=== PATIENT | female | born 1985 | race Caucasian/White ===

== ENCOUNTER → 2019-02-12 11:49 | Outpatient (CLI) | payer MEDICAID, SELFPAY ==
[2017-04-24 12:45] VITALS: BMI 43.4
--- NOTE | 2019-02-12 11:55 | RAD_ITS ---
STUDY: X-RAY - LEFT WRIST REASON FOR EXAM: Female, 33 years old. Fell 3 months ago. Pain TECHNIQUE: 3 view(s) of the wrist were obtained. COMPARISON: None. FINDINGS: There is a healed oblique fracture involving the proximal shaft of the fourth metacarpal bone. There are no acute fractures. The rest of the bone of the wrist are normal. There is no soft tissue swelling. Electronically Signed: Rob Ray MD at 3:51 EDT Tel , Service support , RAD/Wrist min 3 Views
== END ==
PROVIDERS: Family Provider Family Medicine; PCP Family Medicine; Referring Provider Family Medicine; Visit Provider Family Medicine
DX: M25.532 Pain in left wrist (principal)
CPT/HCPCS: 73110

== ENCOUNTER → 2019-03-04 | Outpatient (CLI) | payer MEDICAID, SELFPAY ==
--- NOTE | 2019-03-04 09:05 | RAD_ITS ---
STUDY: X-RAY - CERVICAL SPINE REASON FOR EXAM: Female, 33 years old. Neck pain TECHNIQUE: 4 view(s) of the cervical spine were obtained including flexion and extension COMPARISON: None FINDINGS: Normal anterior atlantoaxial articulation. Normal odontoid process. Normal cervical lordosis. Normal vertebral bodies and endplates. There is narrowing of C5-6 disc space with minor endplate spurring. No evidence for gross instability upon flexion and extension The soft tissue structures are unremarkable. RAD/Cerv Spine 4 or 5 Views IMPRESSION: Mild spondylosis.. Electronically Signed: Jatin Alvarez MD at 20:16 EDT , Service support ,
--- NOTE | 2019-03-04 09:05 | RAD_ITS ---
STUDY: X-RAY - LEFT SHOULDER REASON FOR EXAM: Pain. TECHNIQUE: 4 view(s) of the shoulder. COMPARISON: None. FINDINGS: Normal glenohumeral articulation. Normal acromioclavicular joint. Normal acromion. Normal humeral head and visualized proximal humerus. The soft tissue structures are unremarkable. Normal visualized pulmonary apex. RAD/Shoulder min 2 Views IMPRESSION: Normal x-ray examination of the left shoulder. Electronically Signed: Mark Lima MD at 9:39 EDT Tel , Service support ,
== END | disposition home or self-care (01) ==
LOC: HPRAD 09:04
PROVIDERS: Family Provider Family Medicine; PCP Family Medicine; Referring Provider Orthopaedic Surgery; Visit Provider Orthopaedic Surgery
DX: R20.0 Anesthesia of skin (principal); R20.2 Paresthesia of skin; R52 Pain, unspecified
CPT/HCPCS: 72050; 73030

== ENCOUNTER → 2019-05-06 | Outpatient (CLI) | payer MEDICAID, SELFPAY ==
[2019-04-29 15:26] VITALS: BMI 33.7
[2019-05-06 14:35] LABS: Absolute Lymphocyte Count 2.02 X10^3/ul (0.83-4.51); Absolute Neutrophil Count 4.7 X10^3/uL (2.0-7.7); Basophil# 0.01 X10^3/uL; Basophil% 0.1 % (0-1); Eosinophil# 0.12 X10^3/uL; Eosinophils% 1.6 % (0-5); Hematocrit 40.7 % (37-47); Hemoglobin 12.9 g/dl (12.0-15.0); Lymphocyte # 2.02 X10^3/ul (4.0); Lymphocyte % 26.9 % (19-41); Mean Corp Hgb Conc 31.7 g/gl (32-36); Mean Corpuscular Hgb 26.7 pg (27.0-32.0); Mean Corpuscular Volume 84.3 fL (81-99); Mean Platelet Vol. 11.4 fl (6.2-12.0); Monocyte# 0.69 X10^3/uL; Monocyte% 9.2 % (0-10); Neutrophil # 4.66 X10^3/uL (2.7-7.7); Neutrophil % 61.9 % (47-70); Platelet Count 297 K/mm3 (150-450); RBC Distribution Width CV 14.1 % (11.6-14.6); RBC Distribution Width SD 42.7 fl (35.1-43.9); Red Blood Count 4.83 M/mm3 (4.2-5.4); White Blood Count 7.5 K/mm3 (4.4-11.0)
[2019-05-06 14:40] LABS: POSITIVE COUNT NO; POSITIVE DIFFERENTIAL NO; POSITIVE MORPHOLOGY NO
[2019-05-06 15:16] LABS: Prolactin 11.3 ng/mL; T4 Free Direct 0.94 ng/dL (0.76-1.46); Thyroid Stim Hormone (TSH) 1.35 uIU/mL (0.358-3.74)
== END | disposition home or self-care (01) ==
LOC: BFHLAB 13:16
PROVIDERS: Family Provider Family Medicine; PCP Family Medicine; Visit Provider Family Medicine
DX: N92.1 Excessive and frequent menstruation with irregular cycle (principal)
CPT/HCPCS: 36415; 84146; 84439; 84443; 85025

== ENCOUNTER → 2020-05-31 13:24 | Outpatient (CLI) | payer MEDICAID, SELFPAY ==
[2020-04-02 07:38] VITALS: BMI 33.7
--- NOTE | 2020-05-31 13:26 | CT_ITS ---
STUDY: CT MAXILLOFACIAL SINUSES REASON FOR EXAM: Female, 35 years old. SINUSITIS, RT SIDED CONGESTION SINCE OCTOBER RADIATION DOSAGE (If Supplied By Facility): CTDIvol = ( 33.06 ) mGy, DLP = ( 784.26 ) mGycm TECHNIQUE: The patient was scanned in a multi detector CT scanner. High resolution axial imaging was performed without the administration of intravenous contrast material. Sagittal and coronal images were reconstructed. Individualized dose optimization techniques were used for this CT. COMPARISON: None. FINDINGS: FRONTAL SINUSES: Normal aeration, without mucosal inflammatory disease. ETHMOIDAL SINUSES: Normal aeration, without mucosal inflammatory disease. MAXILLARY SINUSES: Normal aeration, without mucosal inflammatory disease. SPHENOIDAL SINUSES: Normal aeration, without mucosal inflammatory disease. There is patency of the bilateral maxillary infundibuli with normal uncinate processes, ethmoid bullae, and hiatus semilunaris. Normal bilateral middle turbinates. There is hypertrophy of the bilateral inferior nasal turbinates. There is a left sided nasal septal deviation, but without a nasal septal spur. There is patency of the bilateral nasal airways. The visualized osseous structures are normal. The visualized bilateral orbital contents are normal. CT/Sinus/Facial Bone IMPRESSION: There is nasal septal deviation towards the left side of the midline. Hypertrophy of the inferior turbinates bilaterally more prominent on the right side. Electronically Signed: Gerard Covarrubias, at 14:27 EDT , Service support ,
== END ==
PROVIDERS: PCP Family Medicine; Referring Provider Otolaryngology; Visit Provider Otolaryngology
DX: J32.9 Chronic sinusitis, unspecified (principal)
CPT/HCPCS: 70486

== ENCOUNTER → 2020-10-15 10:23 | Outpatient (CLI) | payer MEDICAID, SELFPAY ==
[2020-04-02 07:38] VITALS: BMI 33.7
== END ==
PROVIDERS: PCP Family Medicine; Referring Provider Otolaryngology; Visit Provider Otolaryngology
DX: Z11.59 Encounter for screening for other viral diseases (principal)
CPT/HCPCS: 87635; C9803; U0003

== ENCOUNTER → 2020-10-21 | Outpatient (CLI) | payer MEDICAID, SELFPAY ==
[2020-10-21 13:48] VITALS: BMI 34.9
[2020-10-26 14:53] LABS: HPV APTIMA, High Risk Negative (Negative)
== END | disposition home or self-care (01) ==
LOC: LABSPEC 16:38
PROVIDERS: PCP Family Medicine; Visit Provider Obstetrics & Gynecology
DX: Z12.4 Encounter for screening for malignant neoplasm of cervix (principal)
CPT/HCPCS: 87624; 88175; G0145

== ENCOUNTER → 2021-02-03 | Outpatient (CLI) | payer MEDICAID, SELFPAY ==
[2021-02-03 13:43] VITALS: BMI 35.9
[2021-02-03 20:12] LABS: Chlamydia Trachomatis by PCR Negative (Negative); Neisserai gonorrhoeae by PCR Negative (Negative); Probe Check PASS; Sample Adequacy Control PASS; Specimen Processing Control PASS
== END | disposition home or self-care (01) ==
LOC: LABSPEC 17:18
PROVIDERS: PCP Family Medicine; Referring Provider Nurse Practitioner Women's Health; Visit Provider Nurse Practitioner Women's Health
DX: Z11.3 Encounter for screening for infections with a predominantly sexual mode of transmission (principal)
CPT/HCPCS: 87491; 87591

== ENCOUNTER → 2021-02-11 10:37 | Outpatient (CLI) | payer MEDICAID, SELFPAY ==
[2021-02-03 13:43] VITALS: BMI 35.9
--- NOTE | 2021-02-11 10:40 | US_ITS ---
STUDY: ULTRASOUND OF THE FEMALE PELVIS - COMPLETE REASON FOR EXAM: Female, 35 years old. Menorrhagia LMP: 01/23/2021 TECHNIQUE: Transabdominal and Transvaginal TECHNICAL QUALITY: Adequate. COMPARISON: 2016, no recent studies FINDINGS: The uterus is anteverted and is in a midline position. The uterus measures 12.8 x 7.0 x 4.8 cm. Normal uterine cervix. The endometrium measures 12 mm in thickness, and is hyperechoic. There is no demonstrated endometrial mass. There is a 1.8 cm fibroid. There are multiple nabothian cysts. I.U.D. - The patient does not have an I.U.D. The right ovary is visualized. The right ovary measures 7.9 x 7.5 x 3.9 cm. There is a 2 separate simple cysts, larger measures 4.8 x 5.6 x 3.6 cm, smaller measures 2.6 x 2.3 x 2.0 cm There is normal arterial and normal venous vascularity. The left ovary is visualized. The left ovary measures 2.6 x 2.5 x 1.8 cm cm. There is no left ovarian cyst or ovarian mass. There is no visualized left adnexal mass or complex lesion. There is normal arterial and normal venous vascularity. There is no fluid in the cul-de-sac. The bladder is sonographically normal US/Pelvic (Non ) IMPRESSION: 1.8 cm uterine fibroid 2 simple right ovarian cysts, no specific follow-up needed No suspicious adnexal mass or free fluid Electronically Signed: Everett Restrepo MD at 12:53 EDT , Service support ,
--- NOTE | 2021-02-11 10:40 | US_ITS ---
STUDY: ULTRASOUND OF THE FEMALE PELVIS - COMPLETE REASON FOR EXAM: Female, 35 years old. Menorrhagia LMP: 01/23/2021 TECHNIQUE: Transabdominal and Transvaginal TECHNICAL QUALITY: Adequate. COMPARISON: 2016, no recent studies FINDINGS: The uterus is anteverted and is in a midline position. The uterus measures 12.8 x 7.0 x 4.8 cm. Normal uterine cervix. The endometrium measures 12 mm in thickness, and is hyperechoic. There is no demonstrated endometrial mass. There is a 1.8 cm fibroid. There are multiple nabothian cysts. I.U.D. - The patient does not have an I.U.D. The right ovary is visualized. The right ovary measures 7.9 x 7.5 x 3.9 cm. There is a 2 separate simple cysts, larger measures 4.8 x 5.6 x 3.6 cm, smaller measures 2.6 x 2.3 x 2.0 cm There is normal arterial and normal venous vascularity. The left ovary is visualized. The left ovary measures 2.6 x 2.5 x 1.8 cm cm. There is no left ovarian cyst or ovarian mass. There is no visualized left adnexal mass or complex lesion. There is normal arterial and normal venous vascularity. There is no fluid in the cul-de-sac. The bladder is sonographically normal US/Transvaginal Non- IMPRESSION: 1.8 cm uterine fibroid 2 simple right ovarian cysts, no specific follow-up needed No suspicious adnexal mass or free fluid Electronically Signed: Everett Restrepo MD at 12:53 EDT , Service support ,
== END ==
PROVIDERS: PCP Family Medicine; Referring Provider Nurse Practitioner Women's Health; Visit Provider Nurse Practitioner Women's Health
DX: N92.1 Excessive and frequent menstruation with irregular cycle (principal)
CPT/HCPCS: 76830; 76856; 93976

== ENCOUNTER → 2021-02-23 14:40 | Outpatient (CLI) | payer MEDICAID, SELFPAY ==
[2021-02-03 13:43] VITALS: BMI 35.9
--- NOTE | 2021-02-23 14:43 | RAD_ITS ---
INDICATION: PAIN EXAMINATION/TECHNIQUE: X-RAY - XR Spine Lumbar Min 4 Views COMPARISON: None. FINDINGS: VERTEBRAE: Preserved vertebral body height. No fracture. No spondylolisthesis. Preservation of the normal lumbar lordosis. Mild multilevel facet arthropathy. DISCS: Mild multilevel disc space narrowing and osteophytosis. INCLUDED ABDOMEN: Included bowel gas pattern is non-obstructive. RAD/L/S Spine Min 4 Views IMPRESSION: No acute abnormalities. Mild multilevel lumbar spondylosis and facet arthropathy. Electronically Signed: Branden Matos MD at 16:09 EDT Tel , Service support ,
== END ==
PROVIDERS: PCP Family Medicine; Referring Provider Family Medicine; Visit Provider Family Medicine
DX: M54.30 Sciatica, unspecified side (principal)
CPT/HCPCS: 72110

== ENCOUNTER → 2021-03-21 11:22 | Outpatient (CLI) | payer MEDICAID, SELFPAY ==
[2021-03-21 10:47] VITALS: BMI 35.9
[2021-03-21 11:49] LABS: Absolute Lymphocyte Count 1.58 X10^3/uL (0.83-4.51); Absolute Neutrophil Count 6.9 X10^3/uL (2.0-7.7); Basophil# 0.03 X10^3/uL; Basophil% 0.3 % (0-1); Eosinophils% 1.1 % (0-5); Hematocrit 43.2 % (37-47); Hemoglobin 13.4 g/dL (12.0-15.0); Lymphocyte # 1.58 X10^3/ul (0.83-4.51); Lymphocyte % 17.1 % (19-41); Mean Corpuscular Hgb 26.3 pg (27.0-32.0); Mean Corpuscular Volume 84.9 fL (81-99); Mean Platelet Vol. 10.7 fl (6.2-12.0); Monocyte# 0.66 X10^3/uL; Monocyte% 7.1 % (0-10); NRBC Flagged by Analyzer 0 % (0-5); Neutrophil # 6.86 X10^3/uL (2.7-7.7); Neutrophil % 74.1 % (47-70); Platelet Count 303 K/mm3 (150-450); RBC Distribution Width CV 13.4 % (11.6-14.6); RBC Distribution Width SD 41.8 fl (35.1-43.9); Red Blood Count 5.09 M/mm3 (4.2-5.4); White Blood Count 9.3 K/mm3 (4.4-11.0)
[2021-03-21 12:17] LABS: Thyroid Stim Hormone (TSH) 1.64 uIU/mL (0.358-3.74)
== END ==
PROVIDERS: PCP Family Medicine; Referring Provider Obstetrics & Gynecology; Visit Provider Obstetrics & Gynecology
DX: F32.81 Premenstrual dysphoric disorder (principal)
CPT/HCPCS: 36415; 84443; 85025

== ENCOUNTER → 2022-08-31 | Outpatient (CLI) | payer MEDICAID, SELFPAY ==
--- NOTE | 2022-08-31 12:19 | US_ITS ---
STUDY: ULTRASOUND OF THE FEMALE PELVIS - COMPLETE REASON FOR EXAM: Female, 37 years old. menorrhagia -- excessive menses TECHNIQUE: Endovaginal. Transvaginal US was obtained to better visualized the ovaries. COMPARISON: 4.9.21 FINDINGS: The uterus is anteverted and is in a midline position. The uterus measures 11.5 cm. There is a Nabothian cyst of the cervix. The endometrium measures 14.4 mm in thickness, and is hyperechoic. There is no demonstrated endometrial mass. Fibroid measures 25 mm. I.U.D. - The patient does not have an I.U.D. The right ovary is visualized. The right ovary measures 6.1 cm. Cysts measure up to 67 mm. There is no visualized right adnexal mass or complex lesion. There is normal arterial and normal venous vascularity. The left ovary is visualized. The left ovary measures 3.6 cm. There is no left ovarian cyst or ovarian mass. There is no visualized left adnexal mass or complex lesion. There is normal arterial and normal venous vascularity. There is no fluid in the cul-de-sac. Urinary bladder volume is (in cc) 222. US/Transvaginal Non- IMPRESSION: There are Nabothian cysts of the cervix. Fibroids Large right ovarian cyst. Overall this is slightly larger. SRU Consensus Conference guidelines (Bird, et. al. Radiology 2019;293:359-371) recommend follow-up pelvic ultrasound in 1 year. Electronically Signed: Mikey Bah MD at 17:11 EDT ,
--- NOTE | 2022-08-31 12:19 | US_ITS ---
STUDY: ULTRASOUND OF THE FEMALE PELVIS - COMPLETE REASON FOR EXAM: Female, 37 years old. menorrhagia -- excessive menses TECHNIQUE: Endovaginal. Transvaginal US was obtained to better visualized the ovaries. COMPARISON: 4.921 FINDINGS: The uterus is anteverted and is in a midline position. The uterus measures 11.5 cm. There is a Nabothian cyst of the cervix. The endometrium measures 14.4 mm in thickness, and is hyperechoic. There is no demonstrated endometrial mass. Fibroid measures 25 mm. I.U.D. - The patient does not have an I.U.D. The right ovary is visualized. The right ovary measures 6.1 cm. Cysts measure up to 67 mm. There is no visualized right adnexal mass or complex lesion. There is normal arterial and normal venous vascularity. The left ovary is visualized. The left ovary measures 3.6 cm. There is no left ovarian cyst or ovarian mass. There is no visualized left adnexal mass or complex lesion. There is normal arterial and normal venous vascularity. There is no fluid in the cul-de-sac. Urinary bladder volume is (in cc) 222. US/Pelvic (Non ) IMPRESSION: There are Nabothian cysts of the cervix. Fibroids Large right ovarian cyst. Overall this is slightly larger. SRU Consensus Conference guidelines (Bird, et. al. Radiology 2019;293:359-371) recommend follow-up pelvic ultrasound in 1 year. Electronically Signed: Mikey Bah MD at 17:11 EDT ,
[2022-08-31 14:05] LABS: Absolute Lymphocyte Count 1.81 X10^3/uL (0.83-4.51); Absolute Neutrophil Count 7.6 X10^3/uL (2.0-7.7); Basophil# 0.02 X10^3/uL; Basophil% 0.2 % (0-1); Eosinophil# 0.11 X10^3/uL; Eosinophils% 1.1 % (0-5); Hemoglobin 13.5 g/dL (12.0-15.0); Lymphocyte # 1.81 X10^3/ul (0.83-4.51); Lymphocyte % 17.4 % (19-41); Mean Corp Hgb Conc 32.9 g/dL (32-36); Mean Corpuscular Hgb 27.8 pg (27.0-32.0); Mean Corpuscular Volume 84.5 fL (81-99); Mean Platelet Vol. 10.5 fl (6.2-12.0); Monocyte# 0.85 X10^3/uL; Monocyte% 8.1 % (0-10); NRBC Flagged by Analyzer 0 % (0-5); Neutrophil % 72.8 % (47-70); Platelet Count 327 K/mm3 (150-450); RBC Distribution Width CV 13.5 % (11.6-14.6); RBC Distribution Width SD 42.2 fl (35.1-43.9); Red Blood Count 4.85 M/mm3 (4.2-5.4); White Blood Count 10.4 K/mm3 (4.4-11.0)
[2022-08-31 14:43] LABS: Thyroid Stim Hormone (TSH) 1.88 uIU/mL (0.358-3.74)
== END | disposition home or self-care (01) ==
PROVIDERS: Referring Provider Obstetrics & Gynecology; Visit Provider Obstetrics & Gynecology
DX: N92.1 Excessive and frequent menstruation with irregular cycle (principal)
CPT/HCPCS: 36415; 76830; 76856; 84443; 85025

== ENCOUNTER → 2022-11-07 | Outpatient (CLI) | payer MEDICAID, SELFPAY ==
--- NOTE | 2022-11-07 | EMB_PTH ---
PATIENT: RADHA SNYDER LOC: [facility] U#:[id number] AGE/SX: 37/F ROOM: RE11/07/[address]: Dr. Azeb Pfeiffer MD : 1985 BED: DIS: 11/07/2022 SPEC #: [id number] RECD: 11/07/22 16:10 STATUS: LOUISE СЕРГЕЙ #: [id number] CASSANDRA: 11/07/22 00:[address]: Azeb Pfeiffer DEPT: SURGICAL PATHOLOGY RECD BY: Torsten David ENTERED: 11/08/22 08:11 SP TYPE: ENDOM BX/C JOSE DR: No Primary Care Phys Tissues: Endometrium, NOS Procedures: Surgery Specimen Level IV HEADER OPERATION: Endometrial biopsy PRE-OP DIAGNOSIS: Abnormal uterine bleeding TISSUE SUBMITTED: Endometrial biopsy MICROSCOPIC DIAGNOSIS Endometrial biopsy: Proliferative endometrium. SJ:thom 11/09/2022 MICROSCOPIC DESCRIPTION Slides are reviewed. GROSS DESCRIPTION Received is one container labeled with the patient's name and not further designated. The specimen consists of multiple fragments of hemorrhagic soft tissue mixed with mucoid tissue that in aggregate measure 2.5 x 1.5 x 0.2 cm. The specimen is totally submitted in one cassette. / SJ:thom 11/08/2022 TC:4 CPT: 98070
== END | disposition home or self-care (01) ==
LOC: LABSPEC 16:24
PROVIDERS: Referring Provider Obstetrics & Gynecology; Visit Provider Obstetrics & Gynecology
DX: N93.9 Abnormal uterine and vaginal bleeding, unspecified (principal)
CPT/HCPCS: 88305

== ENCOUNTER 2022-11-14 16:09 | Observation (INO) | payer MEDICAID, SELFPAY ==
[2022-11-10 14:19] LABS: Absolute Neutrophil Count 5.2 X10^3/uL (2.0-7.7); Basophil# 0.02 X10^3/uL; Basophil% 0.3 % (0-1); Eosinophil# 0.12 X10^3/uL; Eosinophils% 1.5 % (0-5); Hematocrit 41.3 % (37-47); Lymphocyte % 22.7 % (19-41); Mean Corp Hgb Conc 31.5 g/dL (32-36); Mean Corpuscular Hgb 26.7 pg (27.0-32.0); Mean Corpuscular Volume 84.8 fL (81-99); Mean Platelet Vol. 11.3 fl (6.2-12.0); Monocyte# 0.71 X10^3/uL; NRBC Flagged by Analyzer 0 % (0-5); Neutrophil # 5.24 X10^3/uL (2.7-7.7); Neutrophil % 66.1 % (47-70); Platelet Count 305 K/mm3 (150-450); RBC Distribution Width CV 13.5 % (11.6-14.6); RBC Distribution Width SD 41.7 fl (35.1-43.9); Red Blood Count 4.87 M/mm3 (4.2-5.4); White Blood Count 7.9 K/mm3 (4.4-11.0)
[2022-11-10 14:39] LABS: Magnesium 2.3 mg/dL (1.6-2.6)
--- NOTE | 2022-11-13 16:59 | PCM.HP.BLA ---
History and Physical Date of Admission: 11/14/22 MR#: [id number] Acct: [id number] Name:RADHA HAAS Rep #: [id number] : 1985 ? ? Provider: Dr. Azeb Pfeiffer MD Age/Sex:? 37/F ? ? Location: [facility] – [place] Status: Signed with Addenda ADDENDUM by Dr. Azeb Pfeiffer MD on 11/07/22 at 1344 Office Procedure Documentation entered by Azeb Pfeiffer MD? 11/07/22 13:44: Endometrial Biopsy Endometrial Biopsy Test: Yes Negative Consent Signed: Yes Time out checklist: patient, procedure, site marked/identified, positioning of patient, supplies available, allergies confirmed and team agrees on procedure tenaculum used: No Details: Cervix prepped with betadine and pipelle inserted into uterus without complication. Specimen obtained and sent to lab for analysis. All instruments removed from vagina without complications. Excellent hemostasis noted. 11/07/22 1344 <Electronically signed by Azeb Pfeiffer MD> Date Azeb Pfeiffer MD cc: ? ~* Signed Intake Vital Signs ? 11/07/2311:55 11/07/2311:58 Height 1.75 m 1.75 m Weight: ? 105.687 kg BMI ? 34.4 BP ? 164/82 H Intake Visit Reasons:?preop Chief Complaint: pre op [facility] Chief Executive Officer Required: No Is patient in pain?: No Allergies No Known Allergies Allergy (Verified 03/02/21 11:51) Medications NK? 11/07/22 [History Confirmed 11/07/22] Is last menstrual period known: No Post menopausal: No Patient : No : No PFSH Medical History? Abnormal Pap smear of cervix Anxiety and depression Surgical History? History of section History of lumbar surgery S/P nasal surgery Family History? Unknown Diabetes Social History? Smoking Status:? Former smoker alcohol intake:? never substance use type:? does not use caffeine:? Yes what type of physical activity do you participate in:? walking and aerobics frequency:? 1-2 times per week seatbelt use:? always do you feel safe at home:? Yes HPI preop Details: RADHA SNYDER is a 37 year old who presents for preop visit, planning hysterectomy 11 cm uterus with a fibroid, and 6 cm right ovarian cyst Female Reproductive History Cycle Length: 21-35 Bleeding Duration: 10 Associated symptoms: cramping pain Questions: metorrhagia: No, sexually active: Yes, dyspareunia: Yes (deep) and PCB: No Menopausal Symptoms: No hot flashes, No night sweats, No weight change, No mood changes, No difficulty concentrating, No sleep problems and No change in libido History ? ? ? 2 ? Elective abortions ? Hx Para ? ? ? 2 ? Spontaneous abortions ? Hx # Term Pregnancies ? Ectopic pregnancies ? Hx # Pregnancies ? Multiple births ? # of living children ? Past Pregnancies Del. Date Name GA/Weeks Outcome Route Bth Weight Gen Labor Lgth Anesthesia Del Locatn Provider FOB Unknown 2005ian ? live - full term 7lbs 4oz Male ? spinal WC Benekos ? Unknown 2016 ? live - full term 8lbs 10oz Male ? spinal WC SELENA ? ROS Const Constitutional: Denies night sweats ENT ENT: Reports system reviewed and no additional complaints, except as documented Cardio Card: Denies chest pain Resp Resp: Denies cough or dyspnea GI GI: Reports as per HPI; Denies constipation, nausea or vomiting : Denies hot flashes or nipple discharge Musc Musc: Denies arthralgias, back pain or muscle weakness Skin Skin/Breast: Denies alopecia, change in hair, dry skin, breast mass, breast pain, breast skin changes or nipple discharge Neuro Neuro: Reports system reviewed and no additional complaints, except as documented Psych Psych: Denies change in libido or difficulty concentrating Endo Endo: Denies cold intolerance, excessive sweating, heat intolerance or polydipsia Pradip/Lymph Hematologic/Lymphatic: Denies easy bleeding, Denies easy bruising and Denies lymphadenopathy Exam Const General: cooperative, healthy appearing, comfortable, no acute distress and well developed Orientation: alert [facility] Head: normal to inspection and normocephalic Ears: hearing grossly normal bilaterally and external ears normal Nose: external nose normal and nares normal Face and sinus: normal facial exam Neck Neck: normal visual inspection and no lymphadenopathy Thyroid: thyroid normal Chest Chest palpation & inspection: normal inspection of the chest Resp Effort & Inspection: normal respiratory effort Auscultation: clear to auscultation bilaterally Cardio Rate: regular rate Rhythm: regular rhythm Heart Sounds: S1 normal and S2 normal GI Inspection: normal to inspection and non-distended Palpation: soft and no hepatosplenomegaly Musc Other: gross motor intact no deficits, full bilateral strength Skin General: no rashes or lesions noted Neuro General: patient alert, patient awake, moves all extremities and no focal motor deficits Motor: muscle tone normal throughout Extrem General: normal to inspection and no pedal edema Psych Appearance: grossly normal Mental Status: mental status grossly normal Affect: normal affect Speech and Movement: speech and movement normal Results POC Urine Office , Urine Negative ? ? Last Edit by Cherry Santiago on 11/07/22 13:35 Coding Level of Care Code No Charge Diagnoses Right ovarian cyst? N83.201 Menorrhagia with irregular cycle? N92.1 Assessment and Plan Assessment and Plan (1) Right ovarian cyst: ?Status:?Acute ?Comment: ovarian cystectomy at [facility] (2) Menorrhagia with irregular cycle: ?Status:?Acute ?Comment: [facility] right ovarian cystectomy. s/p repeat US and cbc tsh ordered, needs EMB at preop visit.? US shows enlarged uterus.? suspect adenomyosis. discussed lysteda or oriahnn, failed OCP, IUD. Plan After discussing the patient's diagnosis and treatment plan options, patient wishes to proceed with surgical management.? I have discussed with the patient the risks, benefits, and alternatives of the procedure which include but are not limited to risks of anesthesia, bleeding, infection, possible damage to bowel, bladder, or surrounding vasculature which could lead to additional surgery to evaluate any complications.? Patient agrees to procedure and wishes to proceed.? ACOG/uptodate references given for additional information regarding procedure.? Plan Details Goals & Barriers: Goals Decrease pain and spasm Decrease HURD Improve ROM Barriers Previous lumbar surgery UPDATE- I have seen the patient and performed any clinically relevant updates to the history and physical exam. Azeb Pfeiffer MD
[2022-11-14] VITALS (21 sets, daily range): BP systolic 130–159; BP diastolic 69–95; PULSE 70–90; RESP 14–19; TEMP 36.1–37.7; O2SAT 95–100; BMI 34.6; BMI 34.4
[2022-11-14] MEDS: dexAMETHasone 10 MG/ML Vial 8 MG IV (06:17)
[2022-11-14] MEDS: Scopolamine 1mg/72hr Patch 1 PATCH TD (06:20)
[2022-11-14 06:35] LABS: Internal QC Validated? YES +Cl - CLEAR BKGD; Pregnancy, Urine Negative Negative
[2022-11-14] MEDS: Lactated Ringers 1,000 ML 40 ML IV ×3 (06:40→10:31)
[2022-11-14] MEDS: Enoxaparin 40 MG/0.4 ML Syringe SC (06:40)
[2022-11-14] MEDS: Gabapentin 600 MG Tablet PO (06:43)
[2022-11-14] MEDS: Acetaminophen 500 MG Tablet 1000 MG PO ×2 (06:43→18:50)
[2022-11-14] MEDS: Phenazopyridine 95 MG Tablet 190 MG PO (06:44)
[2022-11-14] MEDS: Celecoxib 200 MG Capsule 400 MG PO (06:44)
[2022-11-14 06:45] LABS: Bedside Glucose 124 mg/dL (74-106)
--- NOTE | 2022-11-14 07:30 | HYST_PTH ---
PATIENT: RADHA SNYDER LOC: [facility] U#:[id number] AGE/SX: 37/F ROOM: [facility] [place] RE11/14/[address]: Dr. Azeb Pfeiffer MD : 1985 BED: 1 DIS: 11/15/2022 SPEC #: [id number] RECD: 11/14/22 10:39 STATUS: LOUISE REEliane #: [id number] CASSANDRA: 11/14/22 07:[address]: Azeb Pfeiffer DEPT: SURGICAL PATHOLOGY RECD BY: Lucrecia Henderson ENTERED: 11/14/22 11:06 SP TYPE: HYSTERECT OTHR DR: MD Gloria Joyner PA Tissues: Uterus, NOS Procedures: Surgery Specimen Level V HEADER OPERATION: ERAS, laparoscopic assisted vaginal hysterectomy, bilateral salpingectomy PRE-OP DIAGNOSIS: Menorrhagia with irregular cycle, right ovarian cyst TISSUE SUBMITTED: Uterus, cervix, bilateral fallopian tubes, right ovarian cyst MICROSCOPIC DIAGNOSIS Uterus, cervix, bilateral fallopian tubes and right ovarian cyst, hysterectomy, bilateral salpingectomy and right ovarian cystectomy: Cervix ? chronic cystic cervicitis. Endometrium ? proliferative endometrium. Myometrium ? intramural leiomyoma (2 cm in greatest dimension). Bilateral fallopian tubes - no pathologic diagnosis. Left paratubal cyst. Cyst adjacent to right fallopian tube ? consistent with serous cystadenoma. See comment. ESHA:thom 11/15/2022 COMMENT No ovarian tissue is identified adjacent to the cyst. Please make reference to previous specimen ([id number]), endometrial biopsy with diagnosis of ?proliferative endometrium.? Case has been reviewed in consultation with Dr. Tapia who concurs with the above diagnosis. IDC:AM MICROSCOPIC DESCRIPTION Slides are reviewed. GROSS DESCRIPTION Received in fixative is one container labeled with the patient's name and designated uterus, cervix, bilateral fallopian tubes and right ovarian cyst. The specimen consists of a previously, partially opened hysterectomy specimen consisting of uterus with cervix and attached bilateral fallopian tubes and cyst adjacent to right fallopian tube. Detached pieces of tissue are also noted most likely portion of pieces of uterus measuring in aggregate 2 x 2 x 2 cm. The uterus with cervix weighs 227 gm and measures 12 x 9 x 6 cm. The serosal surface is neville, glistening. The ectocervical mucosa is neville, glistening and unremarkable. The external os is oval in contour. Sectioning of the cervix reveal multiple cysts filled with neville, mucoidy material. The endocervical canal measures up to 4 cm in length. The endocervical mucosa is neville, glistening and unremarkable. The triangular endometrial cavity measures 5.5 cm in length and up to 3 cm in width. The endometrium is neville, glistening without any mass lesion and measures up to 0.2 cm in thickness. Sectioning of the uterine wall reveal a neville, nodular mass measuring up to 2 cm in greatest dimension. Sections of this mass reveals neville whorled cut surfaces without areas of hemorrhage, necrosis or cystic degeneration. The uterine wall measures up to 3 cm in thickness. The left fallopian tube measures 7 cm in length and up to 1 cm in diameter. The fimbrial end is identified. A paratubal cyst is also noted measuring 0.5 cm in greatest dimension. Sections reveal unremarkable cut surfaces. The right fallopian tube measures 6.5 cm in length and up to 1 cm in diameter. Adjacent to the fimbrial end of the left tube, there is a large cyst measuring 7.5 x 7 x 5 cm. The distal portion of the fallopian tube including fimbrial end is adherent to this cyst. The outer surface of cyst is smooth and without any papillation. It is inked black. The cyst including the fallopian tube weighs 79 gm. The cyst wall is smooth. The cyst is filled with clear fluid. The cyst wall measures 0.1 cm in thickness. No papillations are identified. Obvious ovarian tissue is not identified. Engine Testing Supervisor sections are submitted in ten cassettes as follows: 1 - anterior cervix, 2 - posterior cervix, 3 & 4 - anterior uterine wall, 5 & 6 - posterior uterine wall, 7 - nodular mass, 8 - left fallopian tube and paratubal cyst 9 - right fallopian tube, 10 - right fallopian tube and cyst adjacent to the right fallopian tube. / ESHA:thom 11/14/2022 TC:1 CPT: 11317
--- NOTE | 2022-11-14 07:38 | DCINST_ITS ---
Discharge Instructions Diet Discharge Diet: No restrictions Activity May resume sexual activity in: 6 weeks Weight Bearing Status: Full weight bearing Dressing / Incision Call your doctor if your incision/area has: Continuous Slow Oozing, Sudden Increased Bleeding, Increased Pain/ Swelling, Increased Redness and Foul Smelling Discharge Call your doctor if you observe: Fever of 101 or Higher, Using more than 1 pad per hour, Shortness of breath, Chest pain and Uncontrolled pain Suture Line Care: Avoid Pulling/Pushing and Avoid Pinching/Bending Remove Dressing in: 1 week (if present) Cleanse incision/area with: Soap & Water and Keep Dressing Clean & Dry Follow Up Care Please Follow Up With: Azeb Pfeiffer MD When: Call to make an appointment with your doctor for a postop visit in 2 and 6 weeks. Test Results: Test results from this visit will be discussed in further detail at your follow- up appointment, if applicable. Discharge Plan Admission Attending Provider: Azeb Pfeiffer Primary Care Provider: Gloria Crawley Consulting Providers: Kamran Milligan Discharge Orders/Prescriptions Prescriptions: New hydrocodone-acetaminophen 5-325 mg tablet 1 tab PO Q6H PRN (Reason: pain) 7 Days Qty: 20 0RF naproxen [naproxen] 500 mg tablet 500 mg PO BID PRN PRN (Reason: Pain) Qty: 30 1RF Continued lorazepam [Ativan] 1 mg tablet 1 mg PO BID PRN (Reason: anxiety) Qty: 20 0RF Referrals / Follow Up: Gloria Crawley PA [Primary Care Provider] - Disposition Disposition (needs filled in before D/C Order can be placed): Home, Self Care
--- NOTE | 2022-11-14 07:38 | PCM.OPRPT ---
Problems Associated Problem List Diagnoses (1) Menorrhagia with irregular cycle: (2) Right ovarian cyst: Report of Operation Date of Procedure: 11/14/22 Pre-Operative Diagnosis: AUB, right ovarian cyst Post-Operative Diagnosis: same Surgery/Procedure Performed:: LAVHBS right ovarian cystectomy Description of Surgical Findings:: enlarged uterus scar tissue present vesicouterine adhesions and omental to anterior abdominal wall adhesions, increased vascularity Surgeon: Azeb Pfeiffer communications senior associate: Maeve Kang Type of Anesthesia: General Specimen's removed: uterus, tubes, right ovarian cyst Drains: fischer Estimated Blood Loss (mL): 300 Fluids Replaced: crystalloid Description of Procedure: Patient received preoperative antibiotics and SCDs were on preoperatively. Patient was taken back to the operating room and placed in the dorsal lithotomy position. General anesthesia was induced and patient was prepped and draped in normal sterile fashion. Uterine manipulator was placed inside the uterus and Fischer catheter placed in the bladder. The umbilicus was grasped with towel clamps and an intraumbilical incision was made after injecting with quarter percent Marcaine and a Veress needle entered into the abdomen confirmed to be intra-abdominal with a low opening pressure. Abdomen was insufflated with CO2 gas and the Veress needle removed and the 5 mm trocar was placed under direct visualization without complication. Right and left lower quadrants were transilluminated and injected with quarter percent Marcaine and 5 mm ports placed under direct visualization. Pelvis was well visualized see operative findings for additional information. Omental to anterior abdominal wall adhesion was taken down with the LigaSure device without complication. Vesicouterine scar tissue was taken down with the LigaSure and then with blunt dissection. Bilateral fallopian tubes were identified and transected with the LigaSure device across the mesosalpinx to the level of the utero-ovarian ligament which was also transected with the LigaSure device. The right ovarian cyst was seen projecting off of the end of the ovary which the end of the ovary where the cyst was present was transected to completely remove the entire cystic structure which was still attached to the mesosalpinx. the broad ligament was opened up by transecting the round ligament bilaterally and skeletonizing the uterine vessels bilaterally and creating a bladder flap using the LigaSure device. The uterine arteries were transected bilaterally with good visualization of the bladder and the ureters were seen to be inferior lateral to the operative area. Increased vascularity was seen in the broad ligament with pelvic congestion. Attention was then paid to the vaginal portion of the procedure and the cervix was grasped with Kuldeep clamps and circumferentially injected with dilute vasopressin. A circumferential incision was made and the vaginal mucosa was mobilized off posteriorly and the cul-de-sac entered into sharply and a longneck speculum placed. The anterior cul-de-sac was then identified and entered into sharply. The uterosacral ligaments were clamped cut and suture ligated with 0 Monocryl bilaterally followed by the cardinal ligaments which were clamped cut and suture ligated bilaterally with 0 Monocryl. Due to limited vaginal access from the extremely long vagina and the enlarged uterus case was technically difficult but performed, the uterus serially descended and was removed with bivalve technique for morcellation. Pelvic sidewall pedicles were checked and resutured with multiple [id number] sutures bilaterally and then noted to have excellent hemostasis. Posterior peritoneum was closed with 2-0 Vicryl. The vaginal mucosa was reapproximated incorporating the posterior peritoneum. This was reapproximated using 0 Vicryl [id number] sutures. Excellent hemostasis was noted. The pelvis and cul-de-sac were well visualized and no significant active bleeding noted but some raw areas were seen on the peritoneum and therefore Floseal was applied. Pressure was taken down and the areas visualized and noted of excellent hemostasis. All ports were removed under direct visualization without complication and the abdomen was desufflated of air. The instruments were removed from the abdomen and the vaginal sweep was negative. Port sites on the abdomen were closed with 4-0 Monocryl interrupted sutures and Steri's and windows were applied. She was awoken and taken recovery in stable condition. Grafts/Implants Used: none Complications none Admit VTE Documentation VTE Present on Admission: No VTE Mechan Device Prophylaxis: SCD's VTE Pharm Prophylaxis ordered?: Yes Procedures Urinary/Genital [id number]: [id number] LAVH+BS/O >250gr Uterus
[2022-11-14] MEDS: Cefazolin 2 GM in 0.9% Normal Saline 100 ML IV (07:40)
[2022-11-14] MEDS: Vasopressin 20 UNITS/ML Vial (08:49)
[2022-11-14] MEDS: Bupivacaine 0.25% 30 ML Vial (10:12)
[2022-11-14] MEDS: Ondansetron 4 MG/2 ML Vial IV (10:30)
[2022-11-14 13:09] LABS: Hematocrit 38.3 % (37-47); Hemoglobin 12.1 g/dL (12.0-15.0); Mean Corp Hgb Conc 31.6 g/dL (32-36); Mean Corpuscular Hgb 26.9 pg (27.0-32.0); Mean Corpuscular Volume 85.1 fL (81-99); Mean Platelet Vol. 10.6 fl (6.2-12.0); Platelet Count 277 K/mm3 (150-450); RBC Distribution Width CV 13.5 % (11.6-14.6); White Blood Count 11.9 K/mm3 (4.4-11.0)
[2022-11-14] MEDS: Ketorolac 30 MG/ML Syringe IV ×2 (13:34→18:50)
[2022-11-15 00:09] VITALS: BP 126/61; PULSE 97; RESP 16; TEMP 37.1; O2SAT 92
[2022-11-15] MEDS: Docusate Sodium 100 MG Capsule PO ×2 (00:13→08:14)
[2022-11-15] MEDS: Acetaminophen 500 MG Tablet 1000 MG PO ×2 (00:13→05:07)
[2022-11-15] MEDS: Ketorolac 30 MG/ML Syringe IV ×2 (00:13→05:08)
[2022-11-15 05:09] VITALS: BP 134/80; PULSE 89; RESP 16; TEMP 37.1; O2SAT 94
[2022-11-15] MEDS: Ensure Plus High Protein 120 ML LIQUID PO (08:14)
[2022-11-15 08:17] VITALS: BP 132/72; PULSE 93; RESP 16; TEMP 36.7; O2SAT 96
--- NOTE | 2022-11-15 08:42 | PCM.PN.OB ---
Subjective Subjective Patient is laying in bed comfortably without complaints. She states that she slept on an off during the night. Nausea improved and patient states that she is ready to go home. Objective Data Objective Data Vital Signs: Vital Signs Temp Pulse Resp BP Pulse Ox O2 Del Method O2 Flow Rate 98.1 F 93 16 132/72 H 96 Room Air 4 11/15/22 08:17 11/15/22 08:17 11/15/22 08:17 11/15/22 08:17 11/15/22 08:17 11/15/22 08:17 11/14/22 13:15 Oxygen Flow Rate (L/min) 4 Oxygen Delivery Method Room Air Weight: 233 lb 11.04 oz Body Mass Index (BMI) 34.4 Intake & Output: Intake and Output for Last 24 Hours 11/13/22 11/14/22 11/15/22 23:59 23:59 23:59 Intake Total 2212 / 2212 1223.5 / 1223.5 Output Total 700 / 700 400 / 400 Balance 1512 / 1512 823.5 / 823.5 Lab / Micro Data Result Diagrams: 11/14/22 13:03 Labs: Laboratory Results - last 24 hr 11/14/22 13:03: WBC 11.9 H, RBC 4.50, Hgb 12.1, Hct 38.3, MCV 85.1, MCH 26.9 L, MCHC 31.6 L, RDW Std Deviation 42.0, RDW Coeff of [place] 13.5, Plt Count 277, MPV 10.6 ROS Constitutional Constitutional: Reports systems reviewed and no addt'l complaints, except as documented Cardiovascular Cardiovascular: Denies chest pain, dizziness, dyspnea or irregular heart rhythm Respiratory/Chest Respiratory/Chest: Denies cough, pain on inspiration or shortness of breath at rest Gastrointestinal Gastrointestinal: Denies abdominal pain, nausea or vomiting Genitourinary Genitourinary: Denies burning urination Musculoskeletal Musculoskeletal: Denies muscle cramps, muscle spasms or muscle weakness Neurologic Neurologic: Denies confusion, dizziness, headache(s) or lack of coordination Psychiatric Psychiatric: Denies anxiety, behavioral changes or depression Physical Exam HEENT normocephalic Resp normal respiratory effort and normal air movement GI soft to palpation, non-tender and non-distended Rectal Exam: other Other Details: Incisions are clean, dry, and intact no CVA tenderness Extremity normal to inspection General Extremity: edema bilateral (trace ) Assessment & Plan (1) S/P laparoscopic assisted vaginal hysterectomy (LAVH): PLAN: patient is s/p LAVH POD 1 1. routine ERAS protocol postop care- increase ambulation, encourage oral intake and oral control of pain. scds for dvt prophylaxis, patient stable for discharge to home.
--- NOTE | 2022-11-15 10:21 | PHA.DC.MR ---
Pharmacy Service has performed discharge medication reconciliation for this patient. The patient's discharge medication list was reviewed for discrepancies and discrepancies were resolved. Medication education papers prepared but patient was discharged when I attempted to deputy general counsel. Home Medications lorazepam 1 mg tablet (Ativan) 1 mg PO BID PRN anxiety #20 tabs 11/07/22 hydrocodone-acetaminophen 5-325mg 5mg-325mg 1 tab PO Q6H PRN pain 7 days #20 tabs 11/14/22 naproxen 500 mg tablet 500 mg PO BID PRN PRN Pain #30 tabs 11/14/22 promethazine 12.5 mg tablet 12.5 mg PO Q6H PRN nausea and vomiting #30 tabs 11/15/22
== END 2022-11-15 09:47 | disposition home or self-care (01) ==
LOC: SDC 16:25 → MS3 16:25
PROVIDERS: Anesthesiology; Admitting Provider Obstetrics & Gynecology; PCP Physician Assistant; Referring Provider Obstetrics & Gynecology; Visit Provider Obstetrics & Gynecology
PROC: 0UT9FZZ Resection of Uterus, Via Natural or Artificial Opening With Percutaneous Endoscopic Assistance (ICD-10-PCS; CPT 58552; principal; 2022-11-14 07:05)
DX: N83.201 Unspecified ovarian cyst, right side (principal); N92.1 Excessive and frequent menstruation with irregular cycle; D25.1 Intramural leiomyoma of uterus; Z87.891 Personal history of nicotine dependence; F41.9 Anxiety disorder, unspecified; M99.03 Segmental and somatic dysfunction of lumbar region; M99.05 Segmental and somatic dysfunction of pelvic region; F32.A Depression, unspecified; Z79.899 Other long term (current) drug therapy
CPT/HCPCS: 58552; 58662; 00944; 36415; 81025; 82962; 83735; 85025; 85027; 86850; 86900; 86901; 88307; 96374; 96376; 99221; J7120; G0378; J2405; J3475

== ENCOUNTER → 2022-11-27 | Outpatient (CLI) | payer MEDICAID, SELFPAY | END | disposition home or self-care (01) | LOC: LABSPEC 12:00 | PROVIDERS: PCP Physician Assistant; Referring Provider Obstetrics & Gynecology; Visit Provider Obstetrics & Gynecology | DX: Z09 Encounter for follow-up examination after completed treatment for conditions other than malignant neoplasm (principal); R30.0 Dysuria | CPT/HCPCS: 87070; 87077; 87086; 87186; 87205 ==

== ENCOUNTER → 2022-12-04 | Outpatient (CLI) | payer MEDICAID, SELFPAY | END | disposition home or self-care (01) | PROVIDERS: PCP Physician Assistant; Referring Provider Obstetrics & Gynecology; Visit Provider Obstetrics & Gynecology | DX: G89.18 Other acute postprocedural pain (principal) | CPT/HCPCS: 87070; 87077; 87186; 87205 ==

== ENCOUNTER 2022-12-08 13:03 | Emergency (ER) | payer MEDICAID, SELFPAY ==
[2022-12-08 13:04] VITALS: BP 155/84; PULSE 81; RESP 18; TEMP 36.6; O2SAT 98; BMI 34.2
--- NOTE | 2022-12-08 14:28 | CT_ITS ---
STUDY: CT ABDOMEN AND PELVIS WITH CONTRAST REASON FOR EXAM: Female, 37 years old. Post operative pain, drainage No further information was provided. RADIATION DOSAGE (If Supplied By Facility): CTDIvol = ( 16.92 ) mGy, DLP = ( 1191.39 ) mGycm TECHNIQUE: Transaxial images were obtained from the dome of the diaphragm to the symphysis pubis without oral contrast. IV 75mL Isovue-370 was administered. Sagittal and coronal images were reconstructed. Individualized dose optimization techniques were used for this CT. COMPARISON: None. FINDINGS: The visualized lung bases are unremarkable. The visualized portions of the heart are within normal limits. Normal liver. The gallbladder is contracted around a few mild gallstones. Normal spleen. Normal pancreas. Normal bilateral adrenal glands. Normal right kidney. Normal left kidney. Normal visualized stomach. Normal small intestine. There is mild to moderate stool in the colon. The appendix is visualized and appears normal. Normal abdominal aorta. Normal inferior vena cava. Normal retroperitoneum. Normal urinary bladder. Since the prior study appears that the uterus has been removed. There is a mildly prominent appearance of the vaginal stump with a small focus of lower stump or vaginal gas. There is a suggestion of possible small left ovarian follicle measuring 1.5 cm. There is no definitive focal abscess formation. There is a small umbilical hernia containing fat. There are diffuse degenerative changes of the visualized lumbar spine. There is a broad disc bulge L4-L5 with moderate neural foramina narrowing minimal central stenosis. CT/Abdomen/Pelvis W IV Cont ONLY IMPRESSION: Status post hysterectomy. Small left ovarian follicle. Nonspecific minimal prominence of the remaining vaginal stump which may be postoperative which may be recent. There is a nonspecific small amount of gas within the vagina and the low aspect of the stump without visualized intraperitoneal or pelvic fluid collection. Cholelithiasis. No appendicitis. Degenerative change thoracolumbar spine. Electronically Signed: Cassidy Biswas MD at 15:32 EST ,
--- NOTE | 2022-12-08 14:29 | EX.ED.DYSGE1 ---
HPI History of Present Illness Chief Complaint: Wound Check Informant: patient Narrative Narrative: Patient presents with pain and drainage from a wound after surgery on 14 November. She had hysterectomy for menometrorrhagia. She was overall healing reasonably well. Most of the port sites have fully healed. But she still was getting a best-green drainage from the umbilicus. She was on 10 days of Bactrim. She has been on amoxicillin. She had Enterococcus faecalis grow from the wound. On repeat culture 7 days later she is still having Enterococcus grow. The concern is if there is a pocket of infection or other issue going on causing this. She certainly is having some postoperative pain. But she is able to eat and drink and is not noting fevers. However, she has been on antibiotics for almost a full 2 weeks now. Her surgeon was very understandably concerned and sent her in here for evaluation and CAT scan to make sure there is not something else we need to intervene on as she is about to start her third antibiotic. I did call and directly discussed the case with Dr. Pfeiffer about the appropriate testing and ordering. I also reviewed prior lab results in the computer that were done as an outpatient that showed her positive cultures. [facility] Medical History Abnormal Pap smear of cervix Anemia Anxiety and depression Back pain Former smoker Marijuana use Post-op pain Right ovarian cyst Home Medications naproxen 500 mg tablet 500 mg PO BID PRN PRN Pain #30 tabs 11/14/22 [Rx Last Taken Unknown] amoxicillin 500 mg capsule 500 mg PO BID 10 days #20 caps 12/01/22 [Rx Last Taken Unknown] ampicillin 500 mg capsule 500 mg PO .QID #40 caps 12/08/22 [Rx Last Taken Unknown] Allergy/AdvReac Type Severity Reaction Status Date / Time No Known Allergies Allergy Verified 12/08/22 13:06 Family History Unknown Diabetes Surgical History History of section History of lumbar surgery Hx of bilateral salpingectomy S/P laparoscopic assisted vaginal hysterectomy (LAVH) S/P nasal surgery Social History Smoking Status: Former smoker alcohol intake: never substance use type: does not use caffeine: Yes what type of physical activity do you participate in: walking and aerobics frequency: 1-2 times per week seatbelt use: always do you feel safe at home: Yes ROS ROS ED Constitutional Constitutional ED: Denies fever(s) ENT ENT ED: Denies rhinorrhea Cardiovascular Cardiovascular: Denies chest pain Respiratory/Chest Respiratory/Chest: Denies cough Gastrointestinal Gastrointestinal: Reports abdominal pain; Denies nausea or vomiting Genitourinary Genitourinary ED: Denies dysuria, hematuria or urinary frequency Musculoskeletal Musculoskeletal: Denies back pain Integumentary Reports other Details: Umbilical wound as in history of present illness. Neurologic Neurologic: Denies headache(s) Psychiatric Psychiatric: Reports anxiety Hematologic/Lymphatic Hematologic/Lymphatic: Denies easy bleeding or easy bruising Allergic/Immunologic Allergic/Immunologic ED: Denies urticaria EXAM Physical Exam Narrative Exam Narrative: Patient is awake alert no acute distress and nontoxic laying in bed. HEENT shows moist mucous membranes. No sign of trauma. Neck is supple no pain with range of motion Lungs are clear and breathing is easy unlabored with normal saturations at 98% on room air. Heart is regular. Not tachycardic. Abdomen is soft. Ports are overall well-healed. There is some still open area in the umbilicus. I do not feel any definitive mass or fluid collection. There is no rebound or guarding. No CVA tenderness. No suprapubic tenderness Extremities show no rash or edema. Patient is neurologically awake alert and appropriate Skin shows no rash pallor or jaundice. Const Vital Signs: 12/08/22 13:04 Temperature 97.8 F Temperature Source Temporal Pulse Rate 81 Respiratory Rate 18 Blood Pressure 155/84 H Blood Pressure Mean 107 Pulse Ox 98 Oxygen Delivery Method Room Air MDM MDM MDM Narrative Medical decision making narrative: Patient CBC is normal without white count or elevated platelets. Electrolytes are overall normal. Liver function test are normal. Urine shows no white cells. My independent interpretation of her CT of the abdomen. There are some postoperative changes but no fluid collection. I can see a small hernia at the umbilicus. But there is no fluid collection air or stranding of the tissue. Final reading by radiology is similar. They do not mention the small umbilical hernia with fat. But there is nothing there that would require surgery incision opening etc. This should resolve with antibiotics. Patient will be discharged and follow-up. Her animal services officer has already called in new antibiotics for her. Lab Data Attestation: I reviewed the patient's lab results. Labs: Laboratory Results - last 24 hr 12/08/22 12/08/22 12/08/22 14:50 14:50 14:50 WBC 9.7 RBC 5.00 Hgb 13.5 Hct 42.2 MCV 84.4 MCH 27.0 MCHC 32.0 RDW Std Deviation 41.8 RDW Coeff of [place] 13.6 Plt Count 338 MPV 10.8 Immature Gran % (Auto) 0.300 Neut % (Auto) 64.4 Lymph % (Auto) 24.9 [place] % (Auto) 5.9 Eos % (Auto) 4.1 Baso % (Auto) 0.4 Absolute Neuts (auto) 6.2 Absolute Lymphs (auto) 2.41 Nucleated RBC % 0 Sodium 140 Potassium 4.0 Chloride 104 Carbon Dioxide 28.0 Anion Gap 8 BUN 14 Creatinine 0.93 Estim Creat Clear Calc 85.72 Est GFR (MDRD) Af Amer 87 Est GFR (MDRD) Non-Af 72 BUN/Creatinine Ratio 15.1 Glucose 87 Calcium 9.3 Total Bilirubin 0.20 AST 25 ALT 38 Alkaline Phosphatase 93 Total Protein 8.5 H Albumin 4.0 Globulin 4.5 H Albumin/Globulin Ratio 0.9 Urine Color Yellow Urine Clarity Sl. Cloudy Urine pH 6.0 Ur Specific [place] 1.020 Urine Protein 15 H Urine Glucose (UA) Normal Urine Ketones Negative Urine Occult Blood 10 H Urine Nitrite Negative Urine Bilirubin Negative Urine Urobilinogen Normal Ur Leukocyte Esterase 100 H Urine RBC 0 SEEN Urine WBC 0 SEEN Ur Squamous Epith Cells 0-5 SEEN Urine Bacteria 0 SEEN Urine Mucus 0 SEEN Radiography Diagnostic Testing: Clinical Impression(s) from Imaging Studies Abdomen/Pelvis CT 12/08/22 14:28 IMPRESSION: Status post hysterectomy. Small left ovarian follicle. Nonspecific minimal prominence of the remaining vaginal stump which may be postoperative which may be recent. There is a nonspecific small amount of gas within the vagina and the low aspect of the stump without visualized intraperitoneal or pelvic fluid collection. Cholelithiasis. No appendicitis. Degenerative change thoracolumbar spine. Electronically Signed: Cassidy Biswas MD at 15:32 EST , Discharge Plan Triage Chief Complaint: Wound Check ED Provider: Todd Ch Dx/Rx/DC Orders Clinical Impression: Incisional infection Instructions: ED Wound Infection after surgery Prescriptions: No Action naproxen [naproxen] 500 mg tablet 500 mg PO BID PRN PRN (Reason: Pain) Qty: 30 1RF amoxicillin 500 mg capsule 500 mg PO BID 10 Days Qty: 20 0RF ampicillin 500 mg capsule 500 mg PO .QID Qty: 40 0RF Primary Care Provider: Gloria Crawley Referrals: Azeb Pfeiffer MD [Med Staff - Active Staff] - Keep Adry appointment Gloria Crawley PA [Primary Care Provider] - Disposition Disposition: Home, Self Care
[2022-12-08 14:59] LABS: Bacteria 0 SEEN /hpf (None Seen); Mucous, Urine 0 SEEN /hpf (<or=2+); Red Blood Cells-Urine 0 SEEN /hpf (0-5); White Blood Cells 0 SEEN /hpf (0-5)
[2022-12-08 15:00] LABS: Absolute Lymphocyte Count 2.41 X10^3/uL (0.83-4.51); Absolute Neutrophil Count 6.2 X10^3/uL (2.0-7.7); Basophil# 0.04 X10^3/uL; Basophil% 0.4 % (0-1); Eosinophils% 4.1 % (0-5); Hematocrit 42.2 % (37-47); Hemoglobin 13.5 g/dL (12.0-15.0); Lymphocyte # 2.41 X10^3/ul (0.83-4.51); Lymphocyte % 24.9 % (19-41); Mean Corpuscular Volume 84.4 fL (81-99); Mean Platelet Vol. 10.8 fl (6.2-12.0); Monocyte# 0.57 X10^3/uL; Monocyte% 5.9 % (0-10); NRBC Flagged by Analyzer 0 % (0-5); Neutrophil # 6.23 X10^3/uL (2.7-7.7); Neutrophil % 64.4 % (47-70); Platelet Count 338 K/mm3 (150-450); RBC Distribution Width CV 13.6 % (11.6-14.6); RBC Distribution Width SD 41.8 fl (35.1-43.9); White Blood Count 9.7 K/mm3 (4.4-11.0)
[2022-12-08 15:04] VITALS: BP 148/75; PULSE 74; RESP 18; O2SAT 99
[2022-12-08 15:10] LABS: Color, Urine Yellow (Yellow); Glucose, Dipstick Normal (Normal); Ketone-Dipstick Negative (Negative); Leukocyte Esterase-Dipstick 100 /ul (Negative); Nitrite-Dipstick Negative (Negative); Occult Blood-Urine 10 /ul (Negative); Protein-Dipstick 15 mg/dl (Negative); Urine Bilirubin Dipstick Negative (Negative); Urine Clarity Sl. Cloudy (Clear); Urine Urobilinogen Normal (Normal)
[2022-12-08 15:17] LABS: Squamous Epithelial Cells - UA 0-5 SEEN /hpf (5-10)
[2022-12-08 15:19] LABS: ALB/GLOB Ratio 0.9 RATIO (0.9-2.4); AST(SGOT) 25 U/L (15-37); Alanine Aminotransfer ALT/SGPT 38 U/L (13-56); Alkaline Phosphatase 93 U/L (45-117); Anion Gap 8 (5-15); BUN 14 mg/dL (7-18); BUN/Creat Ratio 15.1 RATIO (10-20); Calcium,Total 9.3 mg/dL (8.5-10.1); Chloride 104 mmol/L (98-107); Creatinine, Serum 0.93 mg/dL (0.55-1.02); EST Glomerular Filtration Rate 72 mL/min (>60); Est Glom Filt Rate - Afr Amer 87 mL/min (>60); Estimated Creatinine Clearance 85.72 ml/min; Globulin 4.5 g/dL (2.2-4.2); Glucose 87 mg/dL (74-106); Protein, Total 8.5 g/dL (6.4-8.2); Sodium Level 140 mmol/L (136-145)
== END 2022-12-08 16:23 | disposition home or self-care (01) ==
PROVIDERS: Emergency Provider Emergency Medicine; PCP Physician Assistant; Visit Provider Emergency Medicine
DX: T81.41XA Infection following a procedure, superficial incisional surgical site, initial encounter (principal); X58.XXXA Exposure to other specified factors, initial encounter; B95.2 Enterococcus as the cause of diseases classified elsewhere; Z87.891 Personal history of nicotine dependence
CPT/HCPCS: 74177; 80053; 81001; 85025; 96360; 96361; 99283; J7040; Q9967; A4216

== ENCOUNTER 2024-01-10 15:30 | Outpatient (CLI) | payer MEDICAID, SELFPAY | END 2024-01-10 23:59 | disposition home or self-care (01) | LOC: LABSPEC 15:31 | PROVIDERS: PCP Physician Assistant; Referring Provider Otolaryngology; Visit Provider Otolaryngology | DX: J32.9 Chronic sinusitis, unspecified (principal) | CPT/HCPCS: 87070; 87205 ==

== ENCOUNTER 2024-03-19 18:46 | Emergency (ER) | payer MEDICAID, SELFPAY ==
[2024-03-19 18:48] VITALS: BP 123/81; PULSE 78; RESP 18; TEMP 36.7; O2SAT 98; BMI 34.0
--- NOTE | 2024-03-19 20:32 | CT_ITS ---
STUDY: CT ABDOMEN AND PELVIS WITH CONTRAST REASON FOR EXAM: Female, 38 years old. Abdominal pain RADIATION DOSAGE (If Supplied By Facility): CTDIvol = ( 18.18 ) mGy, DLP = ( 1144.54 ) mGycm TECHNIQUE: Transaxial images were obtained from the dome of the diaphragm to the symphysis pubis without oral contrast. IV 100mL Isovue-370 was administered. Sagittal and coronal images were reconstructed. Individualized dose optimization techniques were used for this CT. COMPARISON: None. FINDINGS: The visualized lung bases are unremarkable. The visualized portions of the heart are within normal limits. Normal liver. There are multiple gallstones. Normal spleen. Normal pancreas. Normal bilateral adrenal glands. Normal right kidney. Normal left kidney. Normal visualized stomach. Normal small intestine. Normal colon. The appendix is visualized and appears normal. Normal abdominal aorta. Normal inferior vena cava. Normal retroperitoneum. Normal urinary bladder. There is a small umbilical hernia containing fat. Normal osseous structures. CT/Abdomen/Pelvis W IV Cont ONLY IMPRESSION: Cholelithiasis. Electronically Signed: David Boyle MD at 21:41 EDT ,
--- NOTE | 2024-03-19 20:33 | EDS_ITS ---
HPI HPI - GI History of Present Illness Chief Complaint: Nausea/Vomiting Informant: patient Abdominal Pain/Flank Pain Onset: Yesterday Context: Gradual Onset Timing: Continuous Quality: Burning and Cramping Location: Diffuse Worsened by: Movement Relieved by: Remaining Still Nausea/Vomiting/Emesis GI Symptom: Positive for Nausea and Vomiting Onset: Yesterday Quality: Positive for Nonbilious; Negative for Blood streaks, Coffee ground or Hematemesis Diarrhea/Melena/Hematochezia GI Symptom: Negative for Diarrhea, Melena or Hematochezia Associated Symptoms Associated Symptoms: Negative for Dysuria, Frequency or Hematuria Narrative Narrative: Patient presents with abdominal pain, nausea, and vomiting that began yesterday. Patient states she started with nausea and vomiting yesterday. Patient denies any hematemesis or coffee-ground emesis. Patient states it is stomach contents. Patient admits to diffuse abdominal pain. Patient describes it as cramping and burning. Patient states it is worse with certain movements. Patient states that it is better with rest. Patient states it has been constant since yesterday. Patient denies any diarrhea, melena, or hematochezia. Patient denies any urinary complaints. [facility] Medical History Post-op pain Marijuana use Anemia Back pain Former smoker Right ovarian cyst Abnormal Pap smear of cervix Anxiety and depression Home Medications ?Medication ?Instructions ?Recorded ?Last Taken ?Type naproxen 500 mg tablet 500 mg PO BID PRN PRN Pain #30 tabs 11/14/22 Unknown Rx ampicillin 500 mg capsule 500 mg PO .QID #40 caps 12/08/22 Unknown Rx lorazepam 1 mg tablet 1 mg PO DAILY PRN anxiety #14 tabs 10/12/23 Unknown Rx ondansetron 4 mg disintegrating 4 mg PO Q8H PRN PRN Nausea #10 tabs 03/19/24 Unknown Rx tablet Allergy/AdvReac Type Severity Reaction Status Date / Time No Known Allergies Allergy Verified 03/19/24 18:47 Family History (Updated 01/29/23 @ 09:03 by Kaitlynn Alicea) Mother Hypertension Surgical History Hx of bilateral salpingectomy S/P laparoscopic assisted vaginal hysterectomy (LAVH) S/P nasal surgery History of section History of lumbar surgery Social History Smoking Status: Former smoker alcohol intake: never substance use type: does not use caffeine: Yes what type of physical activity do you participate in: walking and aerobics frequency: 1-2 times per week seatbelt use: always do you feel safe at home: Yes ROS ROS ED Constitutional Constitutional ED: Reports chills and subjective; Denies fever(s) Eyes Eyes: Denies blurry vision or change in vision ENT ENT ED: Denies rhinorrhea or sore throat Cardiovascular Cardiovascular: Denies chest pain or palpitations Respiratory/Chest Respiratory/Chest: Denies cough or dyspnea Gastrointestinal Gastrointestinal: Reports abdominal pain, nausea and vomiting; Denies diarrhea or melena Genitourinary Genitourinary ED: Denies dysuria or hematuria Musculoskeletal Musculoskeletal: Denies back pain or neck pain Integumentary Reports rash; Denies abscess Neurologic Neurologic: Denies headache(s) or weakness Allergic/Immunologic Allergic/Immunologic ED: Denies mouth swelling or urticaria EXAM Physical Exam Const Vital Signs: 03/19/24 18:48 03/19/24 20:47 03/19/24 22:00 Temperature 98.1 F Temperature Source Temporal Pulse Rate 78 72 83 Respiratory Rate 18 18 18 Blood Pressure 123/81 H 132/80 H Blood Pressure Mean 95 97 Pulse Ox 98 98 96 Oxygen Delivery Method Room Air Room Air Room Air Positive well nourished and well developed General Appearance ED: well developed and NAD HEENT Reports moist mucous membranes Neck supple and no JVD Resp normal respiratory effort and clear to auscultation bilaterally Cardio regular rate and regular rhythm GI non-distended Palpation: soft and tender epigastric, LLQ, RLQ, LUQ, RUQ, periumbilical and suprapubic; Negative for guarding or rebound tenderness present Neuro CN's II-XII intact bilaterally, moves all extremities and no sensory deficits noted Sensorium / Orientation: alert Motor Exam: strength 5/5 throughout Psych mental status grossly normal and thought process normal MDM MDM MDM Narrative Medical decision making narrative: Differential diagnosis includes bowel obstruction, perforation, gastritis, cholecystitis, cholelithiasis, pancreatitis, diverticulitis, duodenal ulcer, peptic ulcer disease, urinary tract infection, pyelonephritis, and appendicitis. CT scan of the abdomen and pelvis will be obtained to assess for bowel obstruction, perforation, diverticulitis, and appendicitis. CBC will be obtained to assess for leukocytosis and anemia. Comprehensive metabolic profile will be obtained to assess for hepatic function, renal function, and electrolyte abnormality. Lipase will be obtained to assess for pancreatitis. Urinalysis will be obtained to assess for urinary tract infection and hematuria. Lab Data Attestation: I reviewed the patient's lab results. Lab results narrative: CBC was reviewed. There is a mild leukocytosis of 11.1. The remainder was within normal limits. Comprehensive metabolic profile was reviewed and was essentially within normal limits. Lipase was reviewed and was normal at 16. Urinalysis was reviewed. There is no evidence of urinary tract infection or hematuria. Labs: Laboratory Results - last 24 hr 03/19/24 03/19/24 19:51 21:30 WBC 11.1 H RBC 4.95 Hgb 13.3 Hct 42.4 MCV 85.7 MCH 26.9 L MCHC 31.4 L RDW Std Deviation 41.6 RDW Coeff of [place] 13.3 Plt Count 311 MPV 11.4 Immature Gran % (Auto) 0.400 Neut % (Auto) 78.4 H Lymph % (Auto) 8.5 L [place] % (Auto) 12.6 H Eos % (Auto) 0.0 Baso % (Auto) 0.1 Absolute Neuts (auto) 8.7 H Absolute Lymphs (auto) 0.94 Nucleated RBC % 0 Sodium 137 Potassium 3.4 L Chloride 106 Carbon Dioxide 27.0 Anion Gap 4 L BUN 13 Creatinine 0.72 Estim Creat Clear Calc 130.80 Est GFR (MDRD) Af Amer 115 Est GFR (MDRD) Non-Af 95 BUN/Creatinine Ratio 18.0 Glucose 101 Calcium 9.4 Total Bilirubin 0.30 AST 19 ALT 37 Alkaline Phosphatase 72 Total Protein 8.2 Albumin 3.8 Globulin 4.4 H Albumin/Globulin Ratio 0.9 Lipase 16 Urine Color Yellow Urine Clarity Clear Urine pH 7.0 Ur Specific [place] 1.005 Urine Protein 30 H Urine Glucose (UA) Normal Urine Ketones Negative Urine Occult Blood 50 H Urine Nitrite Negative Urine Bilirubin Negative Urine Urobilinogen Normal Ur Leukocyte Esterase Negative Urine RBC 0-5 SEEN Urine WBC 0 SEEN Ur Squamous Epith Cells 0-5 SEEN Urine Bacteria 0 SEEN Urine Mucus 0 SEEN Radiography Diagnostic Testing: Clinical Impression(s) from Imaging Studies Abdomen/Pelvis CT 03/19/24 20:32 IMPRESSION: Cholelithiasis. Electronically Signed: David Boyle MD at 21:41 EDT , CT scan of the abdomen pelvis was obtained. There is cholelithiasis. There is no evidence of bowel obstruction or perforation. There is a small umbilical hernia containing fat. There is no other acute abnormality noted. This was interpreted by the radiologist and was also independently reviewed by myself. Treatment and Re-Evaluation :: Patient was given IV fluids, morphine, and Zofran. Patient was advised of her findings. Patient is feeling better on reevaluation. Patient was given a prescription for Zofran. Patient was instructed to start with a bland diet and advance as tolerated. Patient was instructed to follow-up with her primary care physician in 5 to 7 days. Patient understood and was agreeable with the plan. All questions were answered. Discharge Plan Triage Chief Complaint: Nausea/Vomiting ED Provider: Kamran Lee Dx/Rx/DC Orders Clinical Impression: Abdominal pain, Cholelithiasis, Nausea and vomiting Instructions: ED Vomiting (Adult) Prescriptions: New ondansetron 4 mg tablet,disintegrating 4 mg PO Q8H PRN PRN (Reason: Nausea) Qty: 10 0RF No Action naproxen [naproxen] 500 mg tablet 500 mg PO BID PRN PRN (Reason: Pain) Qty: 30 1RF ampicillin 500 mg capsule 500 mg PO .QID Qty: 40 0RF lorazepam 1 mg tablet 1 mg PO DAILY PRN (Reason: anxiety) Qty: 14 0RF Primary Care Provider: Gloria Crawley Referrals: Gloria Crawley PA [Primary Care Provider] - Print Language: Upper Sorbian Disposition Disposition: Home, Self Care
[2024-03-19 20:42] LABS: Absolute Lymphocyte Count 0.94 X10^3/uL (0.83-4.51); Absolute Neutrophil Count 8.7 X10^3/uL (2.0-7.7); Basophil# 0.01 X10^3/uL; Basophil% 0.1 % (0-1); Hematocrit 42.4 % (37-47); Hemoglobin 13.3 g/dL (12.0-15.0); Lymphocyte # 0.94 X10^3/ul (0.83-4.51); Lymphocyte % 8.5 % (19-41); Mean Corp Hgb Conc 31.4 g/dL (32-36); Mean Corpuscular Hgb 26.9 pg (27.0-32.0); Mean Corpuscular Volume 85.7 fL (81-99); Mean Platelet Vol. 11.4 fl (6.2-12.0); Monocyte% 12.6 % (0-10); NRBC Flagged by Analyzer 0 % (0-5); Neutrophil # 8.73 X10^3/uL (2.7-7.7); Neutrophil % 78.4 % (47-70); Platelet Count 311 K/mm3 (150-450); RBC Distribution Width CV 13.3 % (11.6-14.6); RBC Distribution Width SD 41.6 fl (35.1-43.9); Red Blood Count 4.95 M/mm3 (4.2-5.4); White Blood Count 11.1 K/mm3 (4.4-11.0)
[2024-03-19] MEDS: Ondansetron 4 MG/2 ML Vial IV (20:42)
[2024-03-19] MEDS: Morphine 4 MG/ML Syringe IV (20:42)
[2024-03-19] MEDS: 0.9% Normal Saline (1000mL) 1,000 ML 999 ML IV (20:42)
[2024-03-19 20:47] VITALS: BP 132/80; PULSE 72; RESP 18; O2SAT 98
[2024-03-19 21:00] LABS: ALB/GLOB Ratio 0.9 RATIO (0.9-2.4); AST(SGOT) 19 U/L (15-37); Alanine Aminotransfer ALT/SGPT 37 U/L (13-56); Albumin, Serum 3.8 g/dL (3.2-5.0); Alkaline Phosphatase 72 U/L (45-117); Anion Gap 4 (5-15); BUN 13 mg/dL (7-18); Calcium,Total 9.4 mg/dL (8.5-10.1); Chloride 106 mmol/L (98-107); Creatinine, Serum 0.72 mg/dL (0.55-1.02); EST Glomerular Filtration Rate 95 mL/min (>60); Est Glom Filt Rate - Afr Amer 115 mL/min (>60); Globulin 4.4 g/dL (2.2-4.2); Glucose 101 mg/dL (74-106); Lipase 16 U/L (13-75); Potassium 3.4 mmol/L (3.5-5.1); Protein, Total 8.2 g/dL (6.4-8.2); Sodium Level 137 mmol/L (136-145)
[2024-03-19 21:37] LABS: Bacteria 0 SEEN /hpf (None Seen); Mucous, Urine 0 SEEN /hpf (<or=2+); White Blood Cells 0 SEEN /hpf (0-5)
[2024-03-19 21:53] LABS: Color, Urine Yellow (Yellow); Glucose, Dipstick Normal (Normal); Ketone-Dipstick Negative (Negative); Leukocyte Esterase-Dipstick Negative /ul (Negative); Nitrite-Dipstick Negative (Negative); Occult Blood-Urine 50 /ul (Negative); Protein-Dipstick 30 mg/dl (Negative); Specific Gravity, Urine 1.005 (1.002-1.030); Urine Bilirubin Dipstick Negative (Negative); Urine Clarity Clear (Clear); Urine Urobilinogen Normal (Normal)
[2024-03-19 22:00] VITALS: PULSE 83; RESP 18; O2SAT 96
[2024-03-19 22:00] LABS: Red Blood Cells-Urine 0-5 SEEN /hpf (0-5); Squamous Epithelial Cells - UA 0-5 SEEN /hpf (5-10)
== END 2024-03-19 23:30 | disposition home or self-care (01) ==
PROVIDERS: Emergency Provider Emergency Medicine; PCP Physician Assistant; Visit Provider Emergency Medicine
DX: K80.20 Calculus of gallbladder without cholecystitis without obstruction (principal); R11.2 Nausea with vomiting, unspecified; R10.9 Unspecified abdominal pain; F41.8 Other specified anxiety disorders; Z79.899 Other long term (current) drug therapy; Z90.710 Acquired absence of both cervix and uterus
CPT/HCPCS: 74177; 80053; 81001; 83690; 85025; 96361; 96374; 96375; 99283; J7030; Q9967; A4216; J2405

== ENCOUNTER 2024-10-13 17:02 | Emergency (ER) | payer MEDICAID, SELFPAY ==
[2024-10-13 17:04] VITALS: BP 132/94; PULSE 99; RESP 16; TEMP 36.8; O2SAT 97; BMI 32.6
--- NOTE | 2024-10-13 18:10 | EX.ED.DYSGE1 ---
HPI History of Present Illness Chief Complaint: Nausea/Vomiting Detail of Chief Complaint: Vomiting Informant: patient Narrative Narrative: Patient presents to the emergency department with complaint of vomiting that started about 24 hours ago. Patient states that she went to a banquet that day and 6 or 7 hours later started vomiting. Patient states that she had a sinus infection a week ago and migraine but that had all resolved. She denies fever. She describes some diffuse abdominal discomfort she thinks from all the retching she has been doing. She states she could not sleep and was up all night vomiting about every 1/2 hour. Patient denies any diarrhea. Denies sick contacts. [facility] Medical History Post-op pain Marijuana use Anemia Back pain Former smoker Right ovarian cyst Abnormal Pap smear of cervix Anxiety and depression Home Medications ?Medication ?Instructions ?Recorded ?Last Taken ?Type naproxen 500 mg tablet 500 mg PO BID PRN PRN Pain #30 tabs 11/14/22 Unknown Rx ondansetron 4 mg disintegrating 4 mg PO Q8H PRN PRN Nausea #10 tabs 03/19/24 Unknown Rx tablet lorazepam 1 mg tablet 1 mg PO DAILY PRN anxiety #14 tabs 07/05/24 Unknown Rx metoclopramide HCl 5 mg tablet 5 mg PO Q6H PRN nausea and 10/13/24 Unknown Rx (Reglan) vomiting #10 tabs Allergy/AdvReac Type Severity Reaction Status Date / Time No Known Allergies Allergy Verified 10/13/24 17:04 Family History Mother Hypertension Surgical History Hx of bilateral salpingectomy S/P laparoscopic assisted vaginal hysterectomy (LAVH) S/P nasal surgery History of section History of lumbar surgery Social History Smoking Status: Former smoker alcohol intake: never substance use type: does not use caffeine: Yes what type of physical activity do you participate in: walking and aerobics frequency: 1-2 times per week seatbelt use: always do you feel safe at home: Yes ROS ROS ED Review of Systems ROS Unobtainable: other Constitutional Constitutional ED: Reports lethargy; Denies chills, fever(s), sweats or weight loss Eyes Eyes: Denies blurry vision, change in vision or diplopia ENT ENT ED: Denies rhinorrhea or sore throat Cardiovascular Cardiovascular: Denies chest pain, orthopnea or racing heartbeat Respiratory/Chest Respiratory/Chest: Reports dyspnea and dyspnea on exertion; Denies cough, orthopnea or sputum Gastrointestinal Gastrointestinal: Reports nausea and vomiting; Denies abdominal pain or diarrhea Genitourinary Genitourinary ED: Denies dysuria, hematuria or urinary frequency Musculoskeletal Musculoskeletal: Denies arthralgias, back pain, myalgias or neck pain Integumentary Denies abscess, Abrasions or rash Neurologic Neurologic: Reports headache(s); Denies weakness Psychiatric Psychiatric: Denies anxiety, depression or suicidal thoughts Endocrine Endocrinology: Denies polydipsia, polyphagia or polyuria Hematologic/Lymphatic Hematologic/Lymphatic: Denies easy bleeding, easy bruising or lymphadenopathy Allergic/Immunologic Allergic/Immunologic ED: Denies mouth swelling, tongue swelling or urticaria EXAM Physical Exam Const Vital Signs: 10/13/24 17:04 10/13/24 19:04 Temperature 98.3 F Temperature Source Oral Pulse Rate 99 65 Respiratory Rate 16 Blood Pressure 132/94 H 128/78 H Blood Pressure Mean 106 94 Pulse Ox 97 Oxygen Delivery Method Room Air Positive well nourished and well developed General Appearance ED: well developed and NAD HEENT Reports TM's clear and moist mucous membranes normocephalic and atraumatic; Negative for trauma or tenderness Tympanic Membrane ED: Yes TM's clear Eyes PERRL and EOMs intact bilaterally General Eye ED: Negative for pale conjunctiva or scleral icterus Neck no lymphadenopathy, supple and no JVD General: Negative for tenderness Chest Wall inspection of chest normal and palpation of chest normal Chest: Negative for tenderness Resp normal respiratory effort and clear to auscultation bilaterally Effort and Inspection: Negative for respiratory distress or pain with movement Auscultation: Negative for rhonchi, wheezes or diminished lung sounds Cardio regular rate, regular rhythm, S1 normal heart sound, S2 normal heart sound and no murmurs Peripheral Pulses: pulses 2+ throughout GI normal to inspection, nondistended, normoactive bowel sounds, soft to palpation, non-distended and no masses GI Narrative: Mild diffuse tenderness. There is no rebound, rigidity, or peritoneal signs. No mass palpated. Back/Spine no CVA tenderness and no thoracic nor lumbar tenderness Extremity normal to inspection General Extremety ED: Negative for edema General Extremity: Negative for edema Neuro oriented x3, CN's II-XII intact bilaterally, no sensory deficits noted and gait normal Neuro Narrative: Finger-nose and heel castellano testing within normal limits, negative Romberg, negative for drift, fundi benign Sensorium / Orientation: awake, alert, oriented to person, oriented to place and oriented to time Motor Exam: strength 5/5 throughout and strength abnormal Psych mental status grossly normal Skin no rashes or lesions noted and no wounds MDM MDM MDM Narrative Medical decision making narrative: Patient with vomiting and mild diffuse abdominal pain. IV line established. CBC with differential obtained showed white count of 9.7 with hemoglobin 13.5 and platelet count 279. Chemistries unremarkable. LFTs were normal. Lipase normal. Urinalysis normal. CT scan of the abdomen pelvis without contrast was unremarkable. Patient was noted to have gallstones there were small but no secondary signs of acute cholecystitis. Discussed results with patient and she is aware the gallstones that have been there for years. On repeat exam at 2114 she is not having any right upper quadrant pain. She has had no further vomiting since we gave her Reglan and Toradol in department. Patient also with history of migraine. Etiology of her vomiting unclear if this could be related to migraine versus viral syndrome. Lab Data Attestation: I reviewed the patient's lab results. Labs: Laboratory Results - last 24 hr 10/13/24 10/13/24 17:35 19:10 WBC 9.7 RBC 4.91 Hgb 13.5 Hct 42.2 MCV 85.9 MCH 27.5 MCHC 32.0 RDW Std Deviation 42.9 RDW Coeff of [place] 13.6 Plt Count 279 MPV 11.2 Immature Gran % (Auto) 0.300 Neut % (Auto) 87.6 H Lymph % (Auto) 6.5 L [place] % (Auto) 5.4 Eos % (Auto) 0.0 Baso % (Auto) 0.2 Absolute Neuts (auto) 8.5 H Absolute Lymphs (auto) 0.63 L Nucleated RBC % 0 Sodium 138 Potassium 3.4 L Chloride 105 Carbon Dioxide 27.0 Anion Gap 6 BUN 11 Creatinine 0.70 Estim Creat Clear Calc 130.45 Est GFR (MDRD) Af Amer 119 Est GFR (MDRD) Non-Af 98 BUN/Creatinine Ratio 15.7 Glucose 100 Calcium 9.2 Total Bilirubin 0.50 AST 21 ALT 33 Alkaline Phosphatase 69 Total Protein 8.0 Albumin 3.7 Globulin 4.3 H Albumin/Globulin Ratio 0.9 Lipase 14 Urine Color Yellow Urine Clarity Clear Urine pH 6.0 Ur Specific [place] 1.020 Urine Protein 30 H Urine Glucose (UA) Normal Urine Ketones Negative Urine Occult Blood 25 H Urine Nitrite Negative Urine Bilirubin Negative Urine Urobilinogen 1 H Ur Leukocyte Esterase Negative Urine RBC 0-5 SEEN Urine WBC 0-5 SEEN Ur Squamous Epith Cells 0-5 SEEN Urine Bacteria RARE Urine Mucus 0 SEEN Radiography Diagnostic Testing: Clinical Impression(s) from Imaging Studies Abdomen/Pelvis CT 10/13/24 19:38 IMPRESSION: Cholelithiasis. No secondary signs of cholecystitis. RECOMMENDATIONS: Consider right upper quadrant ultrasound. Electronically Signed: Ruben Cervantes DO at 20:42 EST , Discharge Plan Triage Chief Complaint: Nausea/Vomiting ED Provider: Elana Garcia Dx/Rx/DC Orders Clinical Impression: Migraine, Vomiting Instructions: ED, Migraine (Classical), ED Vomiting (Adult) Prescriptions: New metoclopramide HCl [Reglan] 5 mg tablet 5 mg PO Q6H PRN (Reason: nausea and vomiting) Qty: 10 0RF No Action lorazepam 1 mg tablet 1 mg PO DAILY PRN (Reason: anxiety) Qty: 14 0RF naproxen [naproxen] 500 mg tablet 500 mg PO BID PRN PRN (Reason: Pain) Qty: 30 1RF ondansetron 4 mg tablet,disintegrating 4 mg PO Q8H PRN PRN (Reason: Nausea) Qty: 10 0RF Primary Care Provider: Gloria Crawley Referrals: Gloria Crawley PA [Primary Care Provider] - 3-5 Days Print Language: Colombian Disposition Disposition: Home, Self Care
[2024-10-13] MEDS: 0.9% Normal Saline (1000mL) 1,000 ML 999 ML IV (18:23)
[2024-10-13] MEDS: Metoclopramide 10 MG/2 ML Vial IV (18:23)
[2024-10-13] MEDS: Ketorolac 15 MG/ML Vial IV (18:23)
[2024-10-13 18:55] LABS: Absolute Lymphocyte Count 0.63 X10^3/uL (0.83-4.51); Absolute Neutrophil Count 8.5 X10^3/uL (2.0-7.7); Basophil# 0.02 X10^3/uL; Basophil% 0.2 % (0-1); Hematocrit 42.2 % (37-47); Hemoglobin 13.5 g/dL (12.0-15.0); Lymphocyte # 0.63 X10^3/ul (0.83-4.51); Lymphocyte % 6.5 % (19-41); Mean Corpuscular Hgb 27.5 pg (27.0-32.0); Mean Corpuscular Volume 85.9 fL (81-99); Mean Platelet Vol. 11.2 fl (6.2-12.0); Monocyte# 0.52 X10^3/uL; Monocyte% 5.4 % (0-10); NRBC Flagged by Analyzer 0 % (0-5); Neutrophil # 8.47 X10^3/uL (2.7-7.7); Neutrophil % 87.6 % (47-70); Platelet Count 279 K/mm3 (150-450); RBC Distribution Width CV 13.6 % (11.6-14.6); RBC Distribution Width SD 42.9 fl (35.1-43.9); Red Blood Count 4.91 M/mm3 (4.2-5.4); White Blood Count 9.7 K/mm3 (4.4-11.0)
[2024-10-13 18:57] LABS: ALB/GLOB Ratio 0.9 RATIO (0.9-2.4); AST(SGOT) 21 U/L (15-37); Alanine Aminotransfer ALT/SGPT 33 U/L (13-56); Albumin, Serum 3.7 g/dL (3.2-5.0); Alkaline Phosphatase 69 U/L (45-117); Anion Gap 6 (5-15); BUN 11 mg/dL (7-18); BUN/Creat Ratio 15.7 RATIO (10-20); Calcium,Total 9.2 mg/dL (8.5-10.1); Chloride 105 mmol/L (98-107); EST Glomerular Filtration Rate 98 mL/min (>60); Est Glom Filt Rate - Afr Amer 119 mL/min (>60); Estimated Creatinine Clearance 130.45 ml/min; Globulin 4.3 g/dL (2.2-4.2); Glucose 100 mg/dL (74-106); Lipase 14 U/L (13-75); Potassium 3.4 mmol/L (3.5-5.1); Sodium Level 138 mmol/L (136-145)
[2024-10-13 19:04] VITALS: BP 128/78; PULSE 65
[2024-10-13 19:18] LABS: Mucous, Urine 0 SEEN /hpf (<or=2+)
[2024-10-13 19:33] LABS: Color, Urine Yellow (Yellow); Glucose, Dipstick Normal (Normal); Ketone-Dipstick Negative (Negative); Leukocyte Esterase-Dipstick Negative /ul (Negative); Nitrite-Dipstick Negative (Negative); Occult Blood-Urine 25 /ul (Negative); Protein-Dipstick 30 mg/dl (Negative); Urine Bilirubin Dipstick Negative (Negative); Urine Clarity Clear (Clear); Urine Urobilinogen 1 mg/dl (Normal)
--- NOTE | 2024-10-13 19:38 | CT_ITS ---
EXAM: CT ABDOMEN AND PELVIS WITHOUT INTRAVENOUS CONTRAST CLINICAL INDICATION: abdominal pain, vomitting TECHNIQUE: Helically acquired images were obtained of the abdomen and pelvis without intravenous contrast. This CT exam was performed using one or more of the following dose reduction techniques: automated exposure control, adjustment of the mA and/or kV according to patient size, and/or use of iterative reconstruction technique. COMPARISON: 03/19/2024 FINDINGS: LOWER THORAX: No significant abnormality. Lung bases are clear. No cardiomegaly. No significant pericardial effusion. ABDOMEN: LIVER: No significant abnormality. Homogeneous. GALLBLADDER AND BILE DUCTS: Cholelithiasis. No secondary signs of cholecystitis. No intra- or extrahepatic biliary ductal dilation. PANCREAS: No significant abnormality. No focal cystic mass. SPLEEN: No significant abnormality. Normal size without focal cystic or solid mass. ADRENALS: No significant abnormality. No nodules. KIDNEYS AND URETERS: No significant abnormality. Normal renal size and position. No hydronephrosis. STOMACH AND BOWEL: No significant abnormality. No stomach or bowel distention. No focal inflammatory change. PELVIS: APPENDIX: No evidence of acute appendicitis. BLADDER: No significant abnormality. REPRODUCTIVE: Status post hysterectomy. ABDOMEN and PELVIS: INTRAPERITONEAL SPACE: No significant abnormality. No ascites or other fluid collection. No free air. BONES/JOINTS: Degenerative changes in the spine. No suspicious lytic or blastic abnormality. SOFT TISSUES: Fat-containing umbilical hernia. VASCULATURE: No significant abnormality. Abdominal aorta is non-dilated. LYMPH NODES: No significant abnormality. No enlarged lymph nodes. CT/Abdomen/Pelvis without Cont IMPRESSION: Cholelithiasis. No secondary signs of cholecystitis. RECOMMENDATIONS: Consider right upper quadrant ultrasound. Electronically Signed: Ruben Cervantes DO at 20:42 EST ,
[2024-10-13 19:41] LABS: Bacteria RARE /hpf (None Seen); Red Blood Cells-Urine 0-5 SEEN /hpf (0-5); Squamous Epithelial Cells - UA 0-5 SEEN /hpf (5-10); White Blood Cells 0-5 SEEN /hpf (0-5)
[2024-10-13 21:34] VITALS: BP 128/78; PULSE 65; RESP 18; TEMP 36.6; O2SAT 99
== END 2024-10-13 21:34 | disposition home or self-care (01) ==
PROVIDERS: Emergency Provider Emergency Medicine; PCP Physician Assistant; Visit Provider Emergency Medicine
DX: R11.10 Vomiting, unspecified (principal); G43.909 Migraine, unspecified, not intractable, without status migrainosus; Z87.891 Personal history of nicotine dependence; Z90.710 Acquired absence of both cervix and uterus; F41.8 Other specified anxiety disorders; Z79.899 Other long term (current) drug therapy
CPT/HCPCS: 74176; 80053; 81001; 83690; 85025; 87631; 96361; 96374; 96375; 99283

== ENCOUNTER 2024-11-17 23:07 | Emergency (ER) | payer MEDICAID, SELFPAY ==
[2024-11-17 23:07] VITALS: BP 133/66; PULSE 105; RESP 16; TEMP 36.9; O2SAT 99; BMI 32.8
--- NOTE | 2024-11-17 23:35 | ED.VIS.GI ---
HPI HPI - GI History of Present Illness Chief Complaint: Nausea/Vomiting/Diarrhea Informant: patient Nausea/Vomiting/Emesis GI Symptom: Positive for Nausea and Vomiting Onset: Today and Hours Severity: Mild Diarrhea/Melena/Hematochezia GI Symptom: Positive for Diarrhea Onset: Today Stool Quality: Positive for Watery Severity: Mild Associated Symptoms Associated Symptoms: Negative for Dysuria, Frequency, Hematuria or Urgency Narrative Narrative: 39-year-old female history of anemia prior hysterectomy. Said her daughter recently had similar symptoms. She started having nausea, vomiting and diarrhea at 6 AM this morning. No fever positive chills. No dysuria. No abdominal pain other than cramping. Prior hysterectomy. Prior similar symptoms: Yes Recent Illness/Hospitalization: No PFSH PFS Medical History Post-op pain Marijuana use Anemia Back pain Former smoker Right ovarian cyst Abnormal Pap smear of cervix Anxiety and depression Home Medications ?Medication ?Instructions ?Recorded ?Last Taken ?Type naproxen 500 mg tablet 500 mg PO BID PRN PRN Pain #30 tabs 11/14/22 Unknown Rx ondansetron 4 mg disintegrating 4 mg PO Q8H PRN PRN Nausea #10 tabs 03/19/24 Unknown Rx tablet lorazepam 1 mg tablet 1 mg PO DAILY PRN anxiety #14 tabs 07/05/24 Unknown Rx Allergy/AdvReac Type Severity Reaction Status Date / Time No Known Allergies Allergy Verified 11/17/24 23:08 Family History Mother Hypertension Surgical History Hx of bilateral salpingectomy S/P laparoscopic assisted vaginal hysterectomy (LAVH) S/P nasal surgery History of section History of lumbar surgery Social History Smoking Status: Former smoker alcohol intake: never substance use type: does not use caffeine: Yes what type of physical activity do you participate in: walking and aerobics frequency: 1-2 times per week seatbelt use: always do you feel safe at home: Yes ROS ROS ED ROS Narrative Nausea, vomiting and diarrhea. Chills. Constitutional Constitutional ED: Reports chills; Denies fever(s) ENT ENT ED: Denies ear pain Cardiovascular Cardiovascular: Denies chest pain Respiratory/Chest Respiratory/Chest: Denies cough or dyspnea Gastrointestinal Gastrointestinal: Reports diarrhea, nausea and vomiting; Denies abdominal pain, constipation or melena Genitourinary Genitourinary ED: Denies dysuria or hematuria Musculoskeletal Musculoskeletal: Denies arthralgias or back pain Integumentary Denies abscess Neurologic Neurologic: Denies paresthesias Psychiatric Psychiatric: Denies anxiety Endocrine Endocrinology: Denies polydipsia Hematologic/Lymphatic Hematologic/Lymphatic: Denies easy bleeding Allergic/Immunologic Allergic/Immunologic ED: Denies mouth swelling EXAM Physical Exam Narrative Exam Narrative: 39-year-old female lying in bed. Does not look septic or toxic. Vital signs are stable afebrile. Pulse ox 9 9% on room air no hypoxia. H EENT exam pupils round react to light. Moist mucous membranes. Extra motions are intact. No facial droop. No trauma. Neck nontender no lymphadenopathy. Lungs clear to auscultation bilaterally. Heart regular rhythm rate about 100 no murmur. Chest wall ribs nontender. Abdomen soft nondistended. Normal bowel sounds no peritoneal signs. No obstruction. No hernia or mass. Soft. Moving all 4 extremities. Nontender. No edema. Normal range of motion. Normal strength. Back nontender. Skin no rashes. Neurologically patient is awake and alert. No focal motor deficits. Benign exam. Consistent with viral gastroenteritis. Const Vital Signs: 11/17/24 23:07 Temperature 98.5 F Temperature Source Oral Pulse Rate 105 H Respiratory Rate 16 Blood Pressure 133/66 H Blood Pressure Mean 88 Pulse Ox 99 Oxygen Delivery Method Room Air Positive well nourished and well developed; Negative for cachectic, contractures or unkempt General Appearance ED: well developed and NAD; Negative for unkempt, cachectic, contractures or pallor Nutritional Appearance: Negative for cachectic HEENT Reports moist mucous membranes normocephalic and atraumatic; Negative for trauma or tenderness Eyes PERRL and EOMs intact bilaterally Neck no lymphadenopathy, supple and no JVD General: Negative for tenderness Carotids: Negative for other Lymph Lymphatic: Negative for other Resp normal respiratory effort and clear to auscultation bilaterally Effort and Inspection: Negative for respiratory distress Auscultation: Negative for rales, rhonchi, wheezes or diminished lung sounds Cardio regular rate, regular rhythm, S1 normal heart sound, S2 normal heart sound and no murmurs GI non-tender, non-distended and no masses Inspection: Negative for abdominal distention Auscultation: normoactive bowel sounds Palpation: soft; Negative for tender, guarding or rebound tenderness present Back/Spine no CVA tenderness General Back: Negative for CVA tenderness Cervical Spine: Negative for cervical spine tenderness Thoracic Spine / Upper Back: Negative for thoracic spinal tenderness Lumbar Spine / Lower Back: Negative for lumbar spinal tenderness Extremity full ROM General Extremety ED: Negative for edema or tenderness General Extremity: Negative for edema Neuro CN's II-XII intact bilaterally, moves all extremities and no sensory deficits noted Sensorium / Orientation: alert, oriented to person, oriented to place and oriented to time; Negative for orientation impaired, confused, lethargic or stuporous Motor Exam: strength 5/5 throughout Psych mental status grossly normal and thought process normal Appearance: Negative for unkempt Attitude: No agitated Mood & Affect: Negative for depressed, anxious or tearful Skin no wounds General Skin Exam: Negative for jaundice or pallor Lesions: no lesions Rashes: no rashes Trauma: Negative for abrasion MDM MDM MDM Narrative Medical decision making narrative: 39-year-old female suspect viral gastroenteritis. Mild dehydration. IV fluids. Liter normal saline. IV Zofran. P.o. fluid challenge. Currently abdomen is benign. She had labs not that long ago. I do not think she needs any labs or imaging at this time. She will be reevaluated after the IV fluids and Zofran. Repeat exam patient doing well at 12:06 AM. Currently his had just several 100 cc of the IV fluids which is running. IV Zofran's been given. Patient's nausea is improving. We will try a p.o. fluid challenge when the patient is ready. Repeat exam at 1:10 AM. Patient doing well. Nausea resolved. Has been able to hold down p.o. fluids. Feels comfortable being discharged home. Her fluids are almost finished. Repeat abdominal exam her abdomen is nontender. No peritoneal signs. She already has Zofran at home. History & Record Review Discussion w/independent historian: Patient Discharge Plan Triage Chief Complaint: Nausea/Vomiting/Diarrhea ED Provider: Javier Floyd Dx/Rx/DC Orders Clinical Impression: Viral gastroenteritis, Acute dehydration Instructions: ED Gastroenteritis, Viral (Adult) Prescriptions: No Action lorazepam 1 mg tablet 1 mg PO DAILY PRN (Reason: anxiety) Qty: 14 0RF naproxen [naproxen] 500 mg tablet 500 mg PO BID PRN PRN (Reason: Pain) Qty: 30 1RF ondansetron 4 mg tablet,disintegrating 4 mg PO Q8H PRN PRN (Reason: Nausea) Qty: 10 0RF Primary Care Provider: Gloria Crawley Referrals: Gloria Crawley PA [Primary Care Provider] - 1-2 Days if not improving Activity Restrictions/Additional Instructions: Plenty of fluids and rest. Water, Gatorade, 7-Up. Ice chips and popsicles. Your home Zofran as needed for nausea. You may let it dissolve under your tongue if you cannot keep it down by swallowing it. Return if unable to keep fluids down or feeling worse. Follow-up with your primary care provider if you are not improving. Print Language: Romansh Disposition Disposition: Home, Self Care
[2024-11-17] MEDS: Ondansetron 4 MG/2 ML Vial IV (23:49)
[2024-11-17] MEDS: 0.9% Normal Saline (1000mL) 1,000 ML 1000 ML IV (23:49)
[2024-11-18 01:07] VITALS: BP 118/67; PULSE 65; RESP 12; TEMP 36.8; O2SAT 100
== END 2024-11-18 01:28 | disposition home or self-care (01) ==
PROVIDERS: Emergency Provider Emergency Medicine; PCP Physician Assistant; Visit Provider Emergency Medicine
DX: A08.4 Viral intestinal infection, unspecified (principal); E86.0 Dehydration; Z90.710 Acquired absence of both cervix and uterus; Z87.891 Personal history of nicotine dependence; F41.8 Other specified anxiety disorders; Z79.899 Other long term (current) drug therapy
CPT/HCPCS: 96361; 96374; 99283; A4216; J2405